=== PATIENT | female | born 1950 ===

== ENCOUNTER 2017-10-09 12:20 | Inpatient (IN) | payer MEDICARE ==
[2017-10-09] MEDS ORDERED: oxyCODONE/Acetamin 5/325 MG* TAB PO PRN (13:47)
[2017-10-09] MEDS ORDERED: Al Hydrox/Mg Hydrox/Simet LIQ* 30 ML UDC PO PRN (13:47)
[2017-10-09] MEDS ORDERED: Acetaminophen TAB* 325 MG PO PRN (13:47)
[2017-10-09] MEDS ORDERED: Temazepam CAP* 15 MG PO PRN (13:47)
[2017-10-09] MEDS ORDERED: Dextrose 50% Syringe 50 ML* 25 GM/50 ML SYRINGE IV PUSH PRN (13:55)
[2017-10-09] MEDS ORDERED: Diltiazem DRIP* 100 MG/100 ML ADDV.BAG IVPB SCH ×2 (14:00→16:19)
[2017-10-09] MEDS ORDERED: Iodixanol* (CONTRAST) 320 MG/ML 100 ML SDV IV ONE (15:12)
--- NOTE | 2017-10-09 16:31 | RAD ---
Indication: Evaluate for pulmonary embolus, right paratracheal mass. Contrast: Administered 80.1 ml of VISIPAQUE 320 mg/ml CTA of the chest was performed after IV contrast administration. Coronal and sagittal reconstructed images were obtained. The pulmonary arterial tree is well opacified. No evidence of filling defects are noted to suggest pulmonary embolus. Aorta demonstrates no evidence of aneurysmal dilatation or aortic dissection. Prominence on the left paratracheal area seen on x-ray likely is related to overlying vessels. There is cardiomegaly noted without evidence of pericardial effusion. Large bilateral pleural effusions are noted. Bibasilar atelectasis is noted. No pulmonary nodules are identified. The visualized abdominal organs are unremarkable. IMPRESSION: No definite evidence of pulmonary embolus. Moderate-sized bilateral pleural effusions are noted. No evidence of aortic dissection is noted. Paratracheal prominence on the left likely due to overlying vessels.
[2017-10-09] MEDS ORDERED: Furosemide IV* 10 MG/ML 2 ML VIAL (20 MG) IV ONE (17:24)
[2017-10-09] MEDS: Insulin LISPRO* 1 UNITS UNIT SUBCUT SCH ×2 (18:37→21:04)
--- NOTE | 2017-10-09 19:02 | HP ---
CC: Dr. Magallanes; Dr. Johnston * HISTORY AND PHYSICAL: DATE OF ADMISSION: 10/09/17 PRIMARY CARE PROVIDER: Dr. Johnston. CAPACITOR TESTER: Dr. Magallanes. CHIEF COMPLAINT: The patient was had been complaining of shortness of breath and dyspnea on exertion for the past 2 to 3 weeks. HISTORY OF PRESENT ILLNESS: Ashley Ayers is a 67-year-old female, originally from [place], has had problems with paroxysmal atrial fibrillation for the past 10 years. The patient stated that she was originally diagnosed with atrial fibrillation during a colonoscopy when she was living in [place] 10 years ago. At some point, her primary care provider noted that she may need to be placed on anticoagulation, but she never was. When she moved to [place], once she was under the care of Dr. Johnston, she was asked to be seen by Dr. Magallanes and that occurred in April of 2017. Dr. Magallanes saw the patient in consultation and was noted that the patient in paroxysmal atrial fibrillation on Holter monitor and she is asymptomatic when it happens. She was placed on Toprol-XL and Xarelto. She had been doing fine until approximately Thanksgiving time, which was 3 weeks ago. She did have dyspnea on exertion, problems with paroxysmal nocturnal dyspnea. She denied any problems with weight gain. She called Dr. Magallanes's office and she was prescribed "a diuretic." She had been taking the diuretics for approximately 3 days and she stated that she is feeling mildly better. She went to have an outpatient echocardiogram done and the preliminary verbal report was noted for the patient to have a heart rate of 170 and EF of approximately 20. She was sent from the echo study to the [facility] for evaluation. There she was noted to have mildly indeterminate troponin at 0.027 and heart rate in the 170s. She was placed on Cardizem drip and transferred to our facility for further treatment. PAST MEDICAL HISTORY: 1. History of atrial fibrillation as mentioned above. 2. History of diabetes. 3. Hypertension. 4. Dyslipidemia. 5. The patient's EF was noted to be 60% in March of 2017. CURRENT MEDICATIONS: Include: 1. Xarelto 20 mg daily. 2. Co-enzyme Q10 one tablet daily. 3. Victoza 1.8 mg subcutaneously daily. 4. Toprol-XL 25 mg daily. 5. The patient also was placed on diuretic and I suspect it was Lasix at an unknown dose for about [address] Magallanes. ALLERGIES: Include TRULICITY that causes GI upset and dizziness. FAMILY HISTORY: Positive for father, who after he fell out of window. Mother with history of breast cancer. SOCIAL HISTORY: The patient denies any tobacco, drug, or alcohol use. She lives with her , who will be her surrogate. She is originally from [facility] in [place]. REVIEW OF SYSTEMS: Please see history of present illness. In addition to the above mentioned, the patient denies any chest pain. She denies leg edema. She stated that she actually likely lost weight, but not gained weight, but she was quite unspecific about the numbers. All the remaining 14 systems were reviewed with the patient and were otherwise negative. PHYSICAL EXAMINATION GENERAL: The patient is a 67-year-old female, who is in no acute distress. Alert, awake, and oriented x3. VITAL SIGNS: Blood pressure of 111/80, heart rate of 111. The patient is currently on 7.5 mg of Cardizem drip. Respiratory rate 14, oxygen saturation 95 % on 3 L of oxygen nasal cannula, temperature 98.7. HEENT: Head: Atraumatic, normocephalic. Eyes: Pupils are equal, reactive to light and accommodation. Oropharynx is clear. Mucosa is moist. NECK: Supple. No JVD. No bruits bilaterally. RESPIRATORY: Faint crackles at bilateral bases, otherwise clear. CARDIOVASCULAR: Irregularly irregular rhythm. No murmurs. ABDOMEN: Soft and nontender. Bowel sounds are present in all 4 quadrants. EXTREMITIES: There is no edema. Pulses are +2 bilaterally. No clubbing or cyanosis. NEURO: Speech clear. Cranial nerves II through XII are grossly intact. Motor strength is 5/5 bilaterally. PSYCHIATRIC: The patient is oriented x3, very pleasant, cooperative with evaluation with no evidence of anxiety or depression. DIAGNOSTIC STUDIES/LAB DATA: Obtained at [facility] today, included, white blood cell count of 8.2, hemoglobin of 15.1, hematocrit of 43, MCV of 86, platelets of 224. INR was noted to be 1.18, glucose of 240, BUN 25, creatinine 1.1, potassium of 3.8, chloride 104, carbon dioxide 27, calcium of 8.8, magnesium of 1.9, total protein of 6.5. AST of 175, ALT of 331, alkaline phosphatase of 156. CPK of 52. Troponin of 0.027. The patient's EKG shows atrial fibrillation with a heart rate of 167 beats per minute at admission. The patient also had negative T waves in leads V3 to V6. The patient's chest x-ray obtained at [facility] was read by the radiologist: "There are low lung volumes. The patient is in apical lordotic projection. There is [id number] density obscuring the hemidiaphragms and blunting of costophrenic angles, right greater than left. There is no significant pulmonary vascular congestion. There is also a small density in the left paratracheal region measuring up to 2 cm transversely. The cardiomediastinal silhouette is increased in size. There are small bilateral pleural effusions with adjacent atelectasis. The left paratracheal soft tissue prominence may be related to lymphadenopathy or pulmonary lesions. Correlation with CT of the chest can be obtained." ASSESSMENT AND PLAN: A 67-year-old female with history paroxysmal atrial fibrillation, who now presents with uncontrolled atrial fibrillation, currently on Cardizem drip, as a transfer from [facility]. The patient also was noted to have cardiomyopathy with ejection fraction of approximately 20%. At this point, the patient is admitted to the intensive care unit on Cardizem drip. Cardiology service will follow with the patient. 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 It is possible that at some point, Cardiology would recommend for the patient to be cardioverted. It is also possible that at some point, the patient will require cardiac catheterization due to her recent drop in her ejection fraction. Please note that in March of 2017, her ejection fraction was 60%. I will also obtain the patient's TSH level. Her electrolytes appear to be not markedly abnormal. I suspect her elevation of liver function test is due to vascular congestion and due to congestive heart failure and we will repeat liver function test tomorrow. I will also obtain TSH in the morning. In regards to the patient's diabetes, the patient's Victoza is going to be held. She is going to be placed on insulin sliding scale and diabetic diet. For the paratracheal mass, the patient is going to have a CT angiogram of the chest obtained. In regards to the patient's anticoagulation, the patient is going to be continued on Xarelto at this point. For DVT prophylaxis, the patient is going to be continued on Xarelto as mentioned above. The patient's code status is full and her surrogate is her . TIME SPENT: Approximately 75 minutes was spent on the patient's admission. [id number]/[facility]PS #: [id number] MTDD
[2017-10-09] MEDS: Docusate CAP* 100 MG PO SCH (21:04)
[2017-10-10 06:26] LABS: Hematocrit 42 % (35-47); Hemoglobin 14.1 g/dl (12.0-16.0); Mean Corpuscular HGB Conc 34 g/dl (31-36); Mean Corpuscular Hemoglobin 30 pg (27-31); Mean Corpuscular Volume 89 fL (80-97); Mean Platelet Volume 8 um3 (7.4-10.4); Red Blood Count 4.71 10^6/ul (4.0-5.4); Red Cell Distribution Width 14 % (10.5-15); White Blood Count 6.7 10^3/ul (3.5-10.8)
[2017-10-10 06:39] LABS: Albumin 3.7 g/dL (3.2-5.2); BUN/Creatinine Ratio 22.8 (8-20); Calcium 8.9 mg/dL (8.6-10.3); EGFR African American 93.1 (>60); EGFR Non-African American 72.4 (>60); Globulin 2.3 g/dL (2-4); Potassium 3.2 mmol/L (3.5-5.0)
[2017-10-10 07:19] LABS: TSH (Thyroid Stimulating Horm) 1.39 mcIU/mL (0.34-5.60)
[2017-10-10] MEDS: Insulin LISPRO* 1 UNITS UNIT SUBCUT SCH ×4 (08:07→21:23)
[2017-10-10] MEDS: Docusate CAP* 100 MG PO SCH ×2 (09:17→21:30)
[2017-10-10] MEDS: Rivaroxaban TAB(*) 20 MG TAB PO SCH (09:33)
[2017-10-10] MEDS ORDERED: Amiodarone 150 MG IVPREMIX* 150 MG/100 ML BAG IV ONE (10:30)
[2017-10-10] MEDS ORDERED: Potassium Chlor TAB* 20 MEQ TAB.ER PO ONE (10:45)
[2017-10-10] MEDS ORDERED: Amiodarone 360 MG IVPREMIX* 360 MG/200 ML BAG IV ONE (11:00)
--- NOTE | 2017-10-10 11:45 | CONS ---
CC: Dr. Scotty Johnston at [facility] CARDIOLOGY CONSULTATION: DATE OF CONSULT: 10/10/17 INDICATION FOR CONSULTATION: Congestive heart failure, atrial fibrillation. HISTORY OF PRESENT ILLNESS: The patient is a 67-year-old female with a history of paroxysmal atrial fibrillation, diabetes, who has been having increasing shortness of breath for 2 weeks. The patient states that she noticed around Thanksgiving that she was getting more short of breath with exertion. She was short of breath with exertion up a flight of stairs. She went to see her primary care physi gavin who thought it was bronchitis and started her on antibiotics. The patient continued to worsen a nd got to the point where she was having significant orthopnea and palpitations. She called my offic e for evaluation. At that time, I had recommended an echocardiogram. I had given her a prescription for p.o. Lasix. The patient states that she took one dose of Lasix and immediately felt significant ly better within a couple of hours. On Thursday morning, patient went to [facility] for an echo cardiogram. Her echocardiogram showed severely reduced LV systolic function. Ejection fraction of 2 0%. Moderate to severe mitral regurgitation and severe pulmonary hypertension. At that time, she wa s in atrial fibrillation with a heart rate of 150. She was admitted to [facility] for her congestive heart failure. Overnight, the patient was placed on a Cardizem drip with good heart rate control. She was also given IV Lasix. Today, the patient feels markedly better. She states she is able to sleep comfortably overnight. The patient continues to be in atrial fibrillation with rapid heartbeat. The patient denies any true anginal type symptoms. She denies any feelings of significan t palpations. The patient states that at one point, she was walking out in the garage and she felt e xtremely dizzy and sort of collapsed onto the ground. OUTPATIENT MEDICATIONS: 1. Aspirin 81 mg a day. 2. Victoza as directed. 3. CoQ10 enzyme. 4. Metoprolol 25 mg b.i.d. 5. Xarelto 20 mg a day. ALLERGIES: No known drug allergies. FAMILY HISTORY: Father of a home accident. Mother of breast cancer. SOCIAL HISTORY: She lives alone. Her daughter is very involved in her care. She denies tobacco or alcohol use. She does not get any regular exercise. PHYSICAL EXAM: Vital Signs: Height is 4 feet 11 inches, weight is 118 pounds. Heart rate is 114, bl ood pressure 120/70, respiratory rate 17, oxygen saturation 94% on 2 L, temperature 98.5. HEENT: Sc lerae anicteric. Oropharynx is pink without erythema. Neck: Carotids are 2+ without bruits. JVD i s slightly elevated at a 30-degree angle. Thyroid is normal. Cardiac: Tachycardic. S1 and S2 with 1/6 systolic ejection murmur heard best at the apex. PMI is normal. Lungs: Have minimal rales at the bases. There was no dullness to percussion. Abdomen: Soft, nontender, and nondistended with no rmoactive bowel sounds. Extremities: Show no edema. She has 2+ pulses throughout. Neurologic: Th e patient is awake, alert, and oriented. She moves all 4 extremities equally. DIAGNOSTIC STUDIES/LAB DATA: CBC within normal limits. Chemistry: Potassium is a little low at 3.2 , BUN and creatinine are normal. Troponin level 0.01. TSH 1.39. AST and ALT are mildly elevated at 127 and 225. EKG shows atrial fibrillation with rapid ventricular response. The patient did have an echocardiogram over at [facility] yesterday morning as described above . 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 At some point, the patient probably went into continued atrial fibrillation with rapid ventricular response and developed tachycardia-induced cardiomyopathy. RECOMMENDATIONS: For now my recommendation is to start amiodarone IV for an IV loading of amiodarone . The patient will stay on amiodarone over the weekend. If the patient does not convert to normal s inus rhythm then patient will undergo cardioversion on Thursday morning. The patient will likely need a transesophageal echocardiogram before that. Patient states that she has been taking her medication s erratically for the last two weeks. So, I am not sure if she has been continuously taking her Xare lto. I do not think another cardiac workup is necessary at this time. Further recommendations pending her hospital course. This case was discussed with Dr. Mojica. [id number]/[facility] #: [id number]
--- NOTE | 2017-10-10 14:46 | PN ---
Subjective Date of Service: 10/10/17 Interval History: Pt continues to be in A.fib, HR 100-130 on amiodarone and Cardizem gtt. no new complaints. Objective Active Medications: Acetaminophen (Tylenol Tab*) 650 mg PO Q4H PRN PRN Reason: FEVER/PAIN Al Hydrox/Mg Hydrox/Simethicone (Maalox Plus*) 30 ml PO Q6H PRN PRN Reason: INDIGESTION Dextrose (D50w Syringe 50 Ml*) 12.5 gm IV PUSH .FOR FS < 60 - SS PRN PRN Reason: FS < 60 Docusate Sodium (Colace Cap*) 100 mg PO BID [facility] Last Admin: 10/10/17 09:17 Dose: Not Given Diltiazem HCl (Cardizem Iv Advan*) 100 mg in 100 mls @ 0 mls/hr IVPB .PER PARAMETERS [facility] PRN Reason: As Directed Last Admin: 10/10/17 06:15 Dose: 3 mls/hr Amiodarone HCl (Nexterone 360 Mg/200 Ml Ivpremix*) 360 mg in 200 mls @ 33.333 mls/hr IV ONCE ONE PRN Reason: 1 MG/MIN Stop: 10/10/17 16:59 Last Admin: 10/10/17 11:16 Dose: 33.333 mls/hr Insulin Human Lispro (Humalog*) 0 units SUBCUT ACHS [facility] PRN Reason: Protocol Last Admin: 10/10/17 11:59 Dose: 10 unit Oxycodone/Acetaminophen (Percocet 5/325 Tab*) 1 tab PO Q4H PRN PRN Reason: Pain Rivaroxaban (Xarelto (*)) 20 mg PO DAILY [facility] Last Admin: 10/10/17 09:33 Dose: 20 mg Temazepam (Restoril Cap*) 15 mg PO BEDTIME PRN PRN Reason: INSOMNIA Vital Signs - 8 hr 10/10/17 10/10/17 10/10/17 06:45 07:00 07:01 Temperature 98.5 F Pulse Rate 102 91 86 Respiratory 20 20 20 Rate Blood Pressure 114/68 126/70 (mmHg) O2 Sat by Pulse 95 94 Oximetry 10/10/17 10/10/17 10/10/17 07:15 07:30 07:46 Temperature Pulse Rate 101 101 94 Respiratory 21 24 19 Rate Blood Pressure 117/70 117/74 121/71 (mmHg) O2 Sat by Pulse 95 94 95 Oximetry 10/10/17 10/10/17 10/10/17 08:00 08:15 08:30 Temperature Pulse Rate 110 103 101 Respiratory 22 18 19 Rate Blood Pressure 130/77 121/80 (mmHg) O2 Sat by Pulse 95 96 96 Oximetry 10/10/17 10/10/17 10/10/17 08:45 09:00 09:31 Temperature Pulse Rate 102 104 112 Respiratory 21 20 19 Rate Blood Pressure 107/78 125/76 124/81 (mmHg) O2 Sat by Pulse 95 95 95 Oximetry 10/10/17 10/10/17 10/10/17 09:46 10:00 10:01 Temperature Pulse Rate 110 129 130 Respiratory 17 22 18 Rate Blood Pressure 120/70 136/109 (mmHg) O2 Sat by Pulse 94 94 94 Oximetry 10/10/17 10/10/17 10/10/17 10:15 10:31 10:45 Temperature Pulse Rate 115 120 115 Respiratory 20 19 20 Rate Blood Pressure 124/90 103/72 103/66 (mmHg) O2 Sat by Pulse 95 94 94 Oximetry 10/10/17 10/10/17 10/10/17 10:54 10:56 10:57 Temperature Pulse Rate 126 110 134 Respiratory 22 20 25 Rate Blood Pressure 83/66 101/73 113/80 (mmHg) O2 Sat by Pulse 92 95 95 Oximetry 10/10/17 10/10/17 10/10/17 11:00 11:05 11:10 Temperature Pulse Rate 136 119 121 Respiratory 22 25 24 Rate Blood Pressure 127/85 121/89 (mmHg) O2 Sat by Pulse 95 94 94 Oximetry 10/10/17 10/10/17 10/10/17 11:15 11:20 11:25 Temperature Pulse Rate 119 121 132 Respiratory 25 29 26 Rate Blood Pressure 125/88 114/79 117/85 (mmHg) O2 Sat by Pulse 93 93 94 Oximetry 10/10/17 10/10/17 10/10/17 11:30 11:31 11:35 Temperature 99.5 F Pulse Rate 124 127 Respiratory 24 19 Rate Blood Pressure 110/78 116/75 (mmHg) O2 Sat by Pulse 94 94 Oximetry 10/10/17 10/10/17 10/10/17 11:40 11:45 11:50 Temperature Pulse Rate 120 120 130 Respiratory 24 28 24 Rate Blood Pressure 106/68 111/88 117/84 (mmHg) O2 Sat by Pulse 94 95 94 Oximetry 10/10/17 10/10/17 10/10/17 11:55 12:00 12:05 Temperature Pulse Rate 113 125 120 Respiratory 25 20 23 Rate Blood Pressure 112/83 116/87 110/90 (mmHg) O2 Sat by Pulse 94 94 94 Oximetry 10/10/17 10/10/17 10/10/17 12:10 12:16 12:20 Temperature Pulse Rate 116 116 124 Respiratory 25 22 21 Rate Blood Pressure 114/85 107/82 122/88 (mmHg) O2 Sat by Pulse 95 95 95 Oximetry 10/10/17 10/10/17 10/10/17 12:40 12:46 12:51 Temperature Pulse Rate 121 106 108 Respiratory 25 24 23 Rate Blood Pressure 133/88 109/76 109/87 (mmHg) O2 Sat by Pulse 94 93 95 Oximetry 10/10/17 10/10/17 10/10/17 12:55 13:00 13:06 Temperature Pulse Rate 104 124 124 Respiratory 24 18 23 Rate Blood Pressure 113/92 104/85 101/84 (mmHg) O2 Sat by Pulse 94 94 95 Oximetry 10/10/17 10/10/17 10/10/17 13:10 13:16 13:20 Temperature Pulse Rate 119 114 114 Respiratory 24 19 24 Rate Blood Pressure 110/79 106/82 109/79 (mmHg) O2 Sat by Pulse 95 94 95 Oximetry 10/10/17 10/10/17 10/10/17 13:26 13:30 13:35 Temperature Pulse Rate 115 114 122 Respiratory 21 24 22 Rate Blood Pressure 99/72 104/81 106/68 (mmHg) O2 Sat by Pulse 96 95 95 Oximetry 10/10/17 10/10/17 10/10/17 13:40 13:45 13:52 Temperature Pulse Rate 110 118 101 Respiratory 22 24 26 Rate Blood Pressure 103/79 90/67 104/76 (mmHg) O2 Sat by Pulse 95 95 95 Oximetry 10/10/17 10/10/17 13:56 14:00 Temperature Pulse Rate 112 115 Respiratory 23 23 Rate Blood Pressure 90/66 (mmHg) O2 Sat by Pulse 95 97 Oximetry Oxygen Devices in Use Now: None Appearance: 67 yo f in nAD, aAOx3 Eyes: No Scleral Icterus, PERRLA Ears/Nose/Mouth/Throat: NL Teeth, Lips, Gums, Mucous Membranes Moist Neck: NL Appearance and Movements; NL JVP, Trachea Midline Respiratory: Symmetrical Chest Expansion and Respiratory Effort, - - decreased breath sounds at b/l bases Cardiovascular: - - irregular, 2/6 CHARITY at apex Abdominal: NL Sounds; No Tenderness; No Distention, No Hepatosplenomegaly Lymphatic: No Cervical Adenopathy Extremities: No Edema, No Clubbing, Cyanosis Skin: No Rash or Ulcers, No Nodules or Sclerosis Neurological: Alert and Oriented x 3, NL Muscle Strength and Tone Result Diagrams: 10/10/17 06:15 10/10/17 06:15 Microbiology and Other Data: Microbiology 10/09/17 14:00 Nasal Screen MRSA (PCR)([facility]) - Final Nasal Mrsa Negative Assess/Plan/Problems-Billing Assessment: 67 yo F with h/o HTN, PAF, DM2 now with persistent a. fib - Patient Problems (1) Atrial fibrillation Comment: Appreciate Dr. Magallanes's consult cont Cardizem gtt and wean down to off when on Amiodarone gtt Planned for cardioversion on Thursday. cont Xarelto (2) Systolic CHF Comment: EF done to 20%, severe pulm HTN and mod to severe MR on echo done as outpatient on 10/09/17 Tx with Lasix on 10/19/17 B/l pleural effusions on CT due to CHF. Today appears euvolemic. Cont daily weights. (3) DM type 2 (diabetes mellitus, type 2) Comment: cont ISS and start Lantus, Victoza on hold (4) DVT prophylaxis Comment: cont Xarelto (5) LFT elevation Comment: possibly due to passive liver congestion due to CHF, will monitor closely when on Amiodarone Check liver US, check hepatitis panel Status and Disposition: inpatient
[2017-10-10] MEDS ORDERED: Insulin GLARGINE(*) 1 UNITS UNIT SUBCUT SCH (15:00)
[2017-10-10] MEDS ORDERED: NS 0.9% 250 ML* 250 ML IV ONE (17:00)
[2017-10-10] MEDS ORDERED: PROCHLORPERAZINE INJ 5 MG/ML 2 ML VIAL IV PRN (17:25)
--- NOTE | 2017-10-10 17:28 | PN ---
Progress Note - Progress Note Date of Service: 10/10/17 Note: In the afternoon pt started c/o diarrhea and abd cramping as well as nausea. on exam she has no abd tenderness, but is very nauseated and retching. SBP at 87 and Cardizem and Amiodarone turned off. IVF bolus provided and compazine prn. Suspect gastroenteritis. Will cont IVF boluses till SBP>100 PT denies CP
[2017-10-10] MEDS ORDERED: Amiodarone 360 MG IVPREMIX* 360 MG/200 ML BAG IV SCH (17:30)
[2017-10-10] MEDS ORDERED: PROCHLORPERAZINE INJ 5 MG/ML 2 ML VIAL ONE (17:31)
[2017-10-10] MEDS ORDERED: NS 0.9% 1000 ML* 1,000 ML IV ONE (18:12)
[2017-10-10] MEDS ORDERED: NS 0.9% 500 ML* 500 ML IV ONE (18:12)
[2017-10-10 18:22] LABS: Hematocrit 40 % (35-47); Hemoglobin 13.2 g/dl (12.0-16.0); Mean Corpuscular HGB Conc 33 g/dl (31-36); Mean Corpuscular Hemoglobin 30 pg (27-31); Mean Corpuscular Volume 90 fL (80-97); Mean Platelet Volume 8 um3 (7.4-10.4); Red Blood Count 4.46 10^6/ul (4.0-5.4); Red Cell Distribution Width 14 % (10.5-15); White Blood Count 10.5 10^3/ul (3.5-10.8)
[2017-10-10 18:36] LABS: Calcium 8.2 mg/dL (8.6-10.3); EGFR African American 54.8 (>60); EGFR Non-African American 42.6 (>60); Potassium 4.8 mmol/L (3.5-5.0)
[2017-10-10 18:38] LABS: Troponin I 0.01 ng/mL (<0.04)
--- NOTE | 2017-10-10 18:39 | PN ---
Hospitalist Progress Note Date of Service: 10/10/17 Called to bedside to eval patient for low bp 67/54 patient had just gotten to toilet and was having nausea and to have bm. Pt has been having cramping and diarrhea today. Dr fraser originally notified and I was asked to eval 1 liter ns had been infused via 250cc boluses. Pt assessed. lungs cta. Pt noted to have increased work of breathing resp rate 30. Bp note 80 systolic. afib at 80-90 on monitor abd soft non tender. EKG ordered no changes from previous ekg. Checking cbc bmp lactic acid cxr ordered. Pt with known cardiomypoathy suspect from tachy induced ef < 20 percent with mod to severe MR. Called Dr baugh and Dr griffiths. Suspect that patient vago-vagaled on toilet. Suspect that due to cariomypoathy patient can not recover. Will start dopamine drip. to increase cardiac output. Discussed this Dr fraser. will check trops lactic bmp, cbc,
[2017-10-10] MEDS ORDERED: D5W IV SCH (19:00)
[2017-10-10] MEDS ORDERED: DOPAMINE IV SCH (19:00)
[2017-10-10 19:05] LABS: Albumin 3.4 g/dL (3.2-5.2); Direct Bilirubin 0.2 mg/dL (0.03-0.18); Globulin 1.9 g/dL (2-4); Indirect Bilirubin 0.4 mg/dL (0.3-1.0); Total Bilirubin 0.6 mg/dL (0.2-1.0); Total Protein 5.3 g/dL (6.4-8.9)
--- NOTE | 2017-10-10 19:15 | RAD ---
Indication: Shortness of breath. Atrial fibrillation. Respiratory disease. Comparison: October 09, [address] Technique: Semiupright AP chest 1838 hours Report: Cardiomegaly. Prominent ill-defined central pulmonary vasculature with cephalization. Mild prominence of the interstitial markings. Moderate dependent pleural effusions with proportional basilar atelectasis. Negative for pneumothorax. IMPRESSION: Pulmonary vascular congestion and interstitial edema with associated moderate dependent pleural effusions without significant interval change.
[2017-10-10] MEDS ORDERED: Piperacillin/Tazobac ADVAN(*) 3.375 GM in NS 0.9% 100 ML* 100 ML IVPB ONE (19:30)
[2017-10-10] MEDS ORDERED: cefTRIAXone(*) 1 GM in D5W 50 ML BAG* 50 ML IVPB SCH (19:30)
[2017-10-10] MEDS ORDERED: cefTRIAXone(*) 1 GM in NS 0.9% 50 ML* 50 ML IVPB SCH (19:30)
--- NOTE | 2017-10-10 19:40 | PN ---
Progress Note - Progress Note Date of Service: 10/10/17 Note: Pt is placed on dopamine. Dr. Magallanes by the pt's bedside talking with pt's family about possible cardioversion. Pt started having rigors. Blood cx obtained and Vanc/Zosyn started. Pt was placed on Vapotherm to decrease WOB, but also for worsening hypoxemia. On abd eval : soft, NT, BS+ opt c/o occasional abd cramping. She is AAOx3 Also Temp done to 35.5 C Suspect sepsis form GI source? D/w Dr. Magallanes, pt was singed out to Dr. Hampton.
[2017-10-10] MEDS ORDERED: Midazolam* 1 MG/ML 2 ML VIAL (2 MG) ONE (19:56)
[2017-10-10] MEDS ORDERED: Norepinephrine 16MCG/ML IVPRE* 4,000 MCG/250 ML BAG IV SCH (20:00)
[2017-10-10] MEDS ORDERED: Zosyn per Pharmacy* NOTE FOLLOW UP SCH (20:00)
[2017-10-10] MEDS ORDERED: Vancomycin(*) 1,000 MG in NS 0.9% 250 ML* 250 ML IVPB ONE (20:00)
[2017-10-10] MEDS ORDERED: metroNIDAZOLE IV 500 MG/100ML* 500 MG/100 ML BAG IVPB SCH (20:00)
[2017-10-10 20:26] LABS: EPAP 6; FIO2 100; IPAP 12
[2017-10-10 20:27] LABS: PCO2 Arterial 35 mmHg (35-45)
[2017-10-10 20:41] LABS: Urine Bacteria Absent (Absent); Urine Bilirubin Negative (Negative); Urine Glucose 1+(50 mg/dL) (Negative); Urine Nitrite Negative (Negative)
[2017-10-10] MEDS: ZOSYN 3.375 GM Q8H per EXTENDED INFUSION IVPB SCH ×2 (23:24)
--- NOTE | 2017-10-11 01:59 | CARD ---
CARDIOVERSION PROCEDURE NOTE AND CRITICAL CARE NOTE: DATE OF STUDY: 10/10/17 PROCEDURE: Cardioversion. INDICATION: Atrial fibrillation, hypotension. HISTORY: The patient is a 67-year-old female with a history of paroxysmal atrial fibrillation who wa s admitted to the hospital with atrial fibrillation with rapid ventricular response. Her echocardiog kendra showed severe LV dysfunction with [id number] mitral regurgitation. The patient was place d on IV amiodarone and IV diltiazem with a plan of doing cardioversion within 1 to 2 days. I have se en the patient this morning and her vitals were stable. The patient was awake, alert and talking in full sentences. Her lung exam had minimal rales. Around 6 o'clock tonight, the patient had an episo de where she went to the bathroom and had some diarrhea as well as severe nausea and then became prof oundly hypotensive and somewhat bradycardic. The patient was placed back in bed. Her oxygen was sig nificantly increased. Her amiodarone and diltiazem were stopped. The patient's lab showed that her lactic acid levels were significantly elevated and she was started on dobutamine. On my arrival, the patient's heart rate was 130, her blood pressure was 90/50. She was meeting about 30 times a minute . She was communicative, but not nearly as she was earlier in the day. The patient's lung exam was still rales at the bases. She had no edema. The patient was having active rigors. The decision at that time was to place a triple lumen catheter and consider cardioversion. Cardioversion was recommended because of her tachycardia and continue tenuous blood pressure. The rigoberto lee was given 2 mg of Versed and was cardioverted with 200 joules of synchronized biphasic energy. This was an emergency procedure and informed consent was not obtained prior to the procedure. The p atient converted to normal sinus rhythm. The patient tolerated the procedure well. After the proced ure, the patient was still somewhat somnolent and was placed on a BiPAP. Blood cultures were obtained . The patient was given antibiotics per the hospitalist. I spent approximately an hour of critical care time with the patient as well as the cardioversion. [id number]/[facility] #: [id number]
--- NOTE | 2017-10-11 02:08 | CARD ---
PROCEDURE NOTE: DATE OF VISIT: 10/10/17 PROCEDURE: Central IV access. INDICATION: Hypotension, tachycardia. The patient is a 67-year-old female who came into the intensive care unit because of severe cardiomyo victoriano and rapid atrial fibrillation. The patient had an episode of diarrhea and nausea and became ma rkedly hypotensive and bradycardic, requiring pressor initiation. The patient had minimal IV access, central IV access was recommended. The patient is on chronic anticoagulation, thus femoral access was done. DESCRIPTION OF PROCEDURE: The right femoral area was cleaned and draped in the usual fashion. 1% li docaine was used for local anesthesia. The right femoral vein was entered by a modified Seldinger te chnique and a guidewire was placed. Over the guidewire, a triple lumen catheter was advanced and sut ured into position. All ports flushed evenly. The patient tolerated the procedure well. There were no complications. [id number]/[facility] #: [id number]
[2017-10-11 06:04] LABS: Magnesium 1.8 mg/dL (1.9-2.7)
[2017-10-11 06:08] LABS: Troponin I 0.03 ng/mL (<0.04)
[2017-10-11] MEDS: DOPAMINE IV SCH ×2 (06:58→18:33)
[2017-10-11] MEDS: NS 0.9% IV SCH ×2 (06:58→18:33)
[2017-10-11] MEDS: Insulin LISPRO* 1 UNITS UNIT SUBCUT SCH ×4 (08:27→20:31)
[2017-10-11] MEDS: ZOSYN 3.375 GM Q8H per EXTENDED INFUSION IVPB SCH ×6 (08:27→23:13)
[2017-10-11] MEDS: Docusate CAP* 100 MG PO SCH ×2 (08:28→20:23)
--- NOTE | 2017-10-11 08:30 | PN ---
Subjective Date of Service: 10/11/17 Interval History: Pt was placed on BIPAT overnight and cardioverted to NSR by Dr. Magallanes. Remained on Dopamine gtt at 5mcg with SBP's in 115's range. Denies abd pain, diarrhea resolved Objective Active Medications: Acetaminophen (Tylenol Tab*) 650 mg PO Q4H PRN PRN Reason: FEVER/PAIN Al Hydrox/Mg Hydrox/Simethicone (Maalox Plus*) 30 ml PO Q6H PRN PRN Reason: INDIGESTION Dextrose (D50w Syringe 50 Ml*) 12.5 gm IV PUSH .FOR FS < 60 - SS PRN PRN Reason: FS < 60 Docusate Sodium (Colace Cap*) 100 mg PO BID [facility] Last Admin: 10/10/17 21:30 Dose: Not Given Amiodarone HCl (Nexterone 360 Mg/200 Ml Ivpremix*) 360 mg in 200 mls @ 16.667 mls/hr IV .SEE PROTOCOL [facility]; 0.5 MG/MIN PRN Reason: Protocol Stop: 10/11/17 11:29 Norepinephrine Bitartrate 4 mg (/ Sodium Chloride) 250 mls @ 7.5 mls/hr IV Q24H [facility] PRN Reason: 2 MCG/MIN Last Admin: 10/11/17 07:45 Dose: Not Given Piperacillin Sod/Tazobactam (Sod 3.375 gm/ Sodium Chloride) 100 mls @ 25 mls/ hr IVPB Q8H [facility] Last Admin: 10/10/17 23:24 Dose: 25 mls/hr Vancomycin HCl 750 mg/ Sodium (Chloride) 250 mls @ 166.667 mls/hr IVPB Q12H [facility] Dopamine HCl 200 mg/ Sodium (Chloride) 250 mls @ 20.1 mls/hr IV Q12H [facility] PRN Reason: 5 MCG/KG/MIN Last Admin: 10/11/17 06:58 Dose: 20.3 mls/hr Insulin Glargine (Lantus(*)) 5 units SUBCUT Q24H [facility] Last Admin: 10/10/17 15:31 Dose: 5 units Insulin Human Lispro (Humalog*) 0 units SUBCUT ACHS [facility] PRN Reason: Protocol Last Admin: 10/11/17 08:27 Dose: Not Given Oxycodone/Acetaminophen (Percocet 5/325 Tab*) 1 tab PO Q4H PRN PRN Reason: Pain Pharmacy Consult (Zosyn Per Pharmacy*) 1 note FOLLOW UP .ZOSYN PER PHARMACY [facility] Pharmacy Profile Note (Vancomycin Trough Check) 1 note FOLLOW UP 829 ONE Stop: 10/12/17 08:31 Prochlorperazine Edisylate (Compazine Inj*) 5 mg IV Q6H PRN PRN Reason: NAUSEA/VOMITING Last Admin: 10/10/17 17:33 Dose: 1 ml Rivaroxaban (Xarelto (*)) 20 mg PO DAILY [facility] Last Admin: 10/10/17 09:33 Dose: 20 mg Temazepam (Restoril Cap*) 15 mg PO BEDTIME PRN PRN Reason: INSOMNIA Vital Signs - 8 hr 10/11/17 10/11/17 10/11/17 00:30 00:45 01:00 Temperature 99.7 F 99.7 F 99.5 F Pulse Rate 74 75 71 Respiratory 19 20 17 Rate Blood Pressure 104/59 114/63 104/61 (mmHg) O2 Sat by Pulse 95 95 95 Oximetry 10/11/17 10/11/17 10/11/17 01:15 01:30 01:45 Temperature 99.5 F 99.5 F 99.5 F Pulse Rate 71 67 74 Respiratory 24 16 15 Rate Blood Pressure 102/57 103/59 107/66 (mmHg) O2 Sat by Pulse 96 96 97 Oximetry 10/11/17 10/11/17 10/11/17 02:00 02:15 02:30 Temperature 99.3 F 99.3 F 99.1 F Pulse Rate 75 71 70 Respiratory 16 18 20 Rate Blood Pressure 103/60 97/58 100/56 (mmHg) O2 Sat by Pulse 97 97 97 Oximetry 10/11/17 10/11/17 10/11/17 02:45 03:00 03:15 Temperature 99.1 F 99.0 F 98.8 F Pulse Rate 72 68 63 Respiratory 18 20 27 Rate Blood Pressure 101/53 99/66 103/52 (mmHg) O2 Sat by Pulse 97 97 97 Oximetry 10/11/17 10/11/17 10/11/17 03:30 03:42 03:45 Temperature 98.6 F 98.6 F Pulse Rate 69 70 67 Respiratory 15 17 22 Rate Blood Pressure 106/57 107/54 (mmHg) O2 Sat by Pulse 98 98 98 Oximetry 10/11/17 10/11/17 10/11/17 04:00 04:15 04:30 Temperature 98.4 F 98.4 F 98.4 F Pulse Rate 65 67 57 Respiratory 21 16 15 Rate Blood Pressure 105/58 107/62 116/57 (mmHg) O2 Sat by Pulse 97 97 99 Oximetry 10/11/17 10/11/17 10/11/17 04:45 05:00 05:15 Temperature 98.2 F 98.2 F 98.2 F Pulse Rate 56 61 58 Respiratory 19 17 18 Rate Blood Pressure 117/61 113/64 125/64 (mmHg) O2 Sat by Pulse 98 98 99 Oximetry 10/11/17 10/11/17 10/11/17 05:30 05:45 06:00 Temperature 98.4 F 98.4 F 98.4 F Pulse Rate 52 72 65 Respiratory 15 20 17 Rate Blood Pressure 111/62 120/65 129/67 (mmHg) O2 Sat by Pulse 99 98 96 Oximetry 10/11/17 10/11/17 10/11/17 06:01 06:15 06:30 Temperature 98.4 F 98.2 F 98.2 F Pulse Rate 66 63 61 Respiratory 19 36 26 Rate Blood Pressure 105/53 114/59 (mmHg) O2 Sat by Pulse 96 95 95 Oximetry 10/11/17 10/11/17 06:45 07:00 Temperature 98.2 F 98.2 F Pulse Rate 66 63 Respiratory 18 18 Rate Blood Pressure 115/62 97/56 (mmHg) O2 Sat by Pulse 95 95 Oximetry Oxygen Devices in Use Now: BiPAP - at 50 % Fi02 Appearance: 67 yo F in nAD, AAOx3, on BIPAP Eyes: No Scleral Icterus, PERRLA Ears/Nose/Mouth/Throat: NL Teeth, Lips, Gums, Mucous Membranes Moist Neck: NL Appearance and Movements; NL JVP, Trachea Midline Respiratory: Symmetrical Chest Expansion and Respiratory Effort, Clear to Auscultation Cardiovascular: NL Sounds; No Murmurs; No JVD, RRR Abdominal: NL Sounds; No Tenderness; No Distention, No Hepatosplenomegaly Lymphatic: No Cervical Adenopathy Extremities: No Clubbing, Cyanosis, - - mild b/l hand edema Skin: No Rash or Ulcers, No Nodules or Sclerosis, - - R femoral triple lumen in place, no hematoma Neurological: Alert and Oriented x 3, NL Muscle Strength and Tone Result Diagrams: 10/11/17 08:39 10/11/17 08:39 Microbiology and Other Data: Microbiology 10/09/17 14:00 Nasal Screen MRSA (PCR)([facility]) - Final Nasal Mrsa Negative Assess/Plan/Problems-Billing Assessment: 67 yo F with h/o HTN, PAF, DM2 now with persistent a. fib - Patient Problems (1) Hypotension Comment: on 10/10/17 at 5 PM pt developed hypotension with loose BM's and c/o nausea and abd cramping. That occured on Amiodarone gtt-started that AM and cardizem gtt that was being weaned to off. Cardizem and Amiodarone were stopped , pt continued to be hypotensive and nauseated. given IVF boluses with no response. Placed on dopamine gtt. Dr. Magallanes arrived and cardioverted to NSR, placed on BIPAP for cardioversion. This AM she is feeling better. Still on BIPAP and dopamine gtt. Labs pending Plan to wean off BIPAP and Dopamine started on Zosyn and Vanc for hypothermia and rigors during the above event for suspected sepsis (? abdominal source?). So far infectious w/up showed G+ cocci in one bottle and will cont antibiotics (2) Atrial fibrillation Comment: Appreciate Dr. Magallanes's consult S/p cardioversion on 10/10/17-see above (troponin transiently up to 0.2 secondary to cardioversion). now in NSR with PAC's cont Xarelto (3) Systolic CHF Comment: EF 20%, severe pulm HTN and mod to severe MR on echo done as outpatient on 10/09/17 Tx with Lasix on 10/19/17 B/l pleural effusions on CT due to CHF. Today will monitor , take off BIPAP (4) DM type 2 (diabetes mellitus, type 2) Comment: cont ISS , Victoza on hold due to aM hypoglycemia Lantus will be held (5) DVT prophylaxis Comment: cont Xarelto (6) LFT elevation Comment: possibly due to passive liver congestion due to CHF, will monitor closely when on Amiodarone Liver US -ordered, acute hepatitis panel negative Status and Disposition: inpatient
[2017-10-11 08:53] LABS: Hematocrit 38 % (35-47); Hemoglobin 12.9 g/dl (12.0-16.0); Mean Corpuscular HGB Conc 34 g/dl (31-36); Mean Corpuscular Hemoglobin 30 pg (27-31); Mean Corpuscular Volume 88 fL (80-97); Mean Platelet Volume 8 um3 (7.4-10.4); Red Blood Count 4.31 10^6/ul (4.0-5.4); Red Cell Distribution Width 14 % (10.5-15); White Blood Count 7.7 10^3/ul (3.5-10.8)
[2017-10-11] MEDS ORDERED: Magnesium Sulfate 1 GM IV* 1 GM/100 ML BAG IV ONE (09:00)
[2017-10-11] MEDS ORDERED: Famotidine IV * 20 MG in NS 0.9% 100 ML* 100 ML IVPB SCH (09:00)
[2017-10-11 09:10] LABS: BUN/Creatinine Ratio 22.9 (8-20); Calcium 8.6 mg/dL (8.6-10.3); EGFR African American 74.3 (>60); EGFR Non-African American 57.8 (>60)
[2017-10-11] MEDS: Vancomycin(*) 750 MG in NS 0.9% 250 ML* 250 ML IVPB SCH ×2 (09:50→20:25)
[2017-10-11] MEDS: Famotidine IV* 10 MG/ML 2 ML (20 mg) IV SLOW PU SCH ×2 (09:52→20:24)
[2017-10-11] MEDS: Rivaroxaban TAB(*) 20 MG TAB PO SCH (11:00)
--- NOTE | 2017-10-11 12:44 | CONSULT ---
Consult Consult: CRITICAL CARE MEDICINE DATE: 10/11/17 TIME: 1010 REFERRING PROVIDER: bria REASON/CHIEF COMPLAINT: son, cardiomyopathy HISTORY OF PRESENT ILLNESS: 67 F presenting 2 days ago as transfer from [facility] to [facility] and afib rvr. Known to Dr. Magallanes who was already presuming she had chf and pt initially admitted for rate control afib, concern for tachycardia induced cm and started on cardizem. bp soft and small amount of fluid boluses; then started on amio as well. soon after pt with decompensation and concern for cardiogenic shock, although she then developed rigors with concerns even for infection. tx empirically with abx while resuscitated with dopamine and hfo2 and then to bipap after having central access placed and then given her continued slow ability to thrive post acute shock she underwent cardioversion last pm with vast improvement in dynamics. hernandez bipap overnight and markedly better end organ perfusion. REVIEW OF SYSTEMS: As per HPI. PAST MEDICAL HISTORY: As per HPI. MEDICATIONS: Reviewed. ALLERGIES: Reviewed. SOCIAL HISTORY: Reviewed. FAMILY HISTORY: Noncontributory at present. PHYSICAL EXAM: Vital Signs: Reviewed. dopa at 5. 15lpm 50% Neurologic: awake, communicating, nad HEENT: poor dentition Cardiovascular: S1, S2 3/6 sobeida Respiratory: dec at bases but couldn't appreciate rales. phases well Abdomen: soft, nt Extremities: warm. no overt edema Access: right fem cvc site intact. LABS: Reviewed. IMAGING: Reviewed. MEDICATIONS: Reviewed. ASSESSMENT: 67 F Cardiogenic shock - recovering Acute systolic HF Acute pulm edema sec to above recovering Acute hypoxic resp failure - recovering ASHLEY sec to above - recovering Tx for sepsis of unknown origin - did not spike temp post rigors and wbc not maturing; rigors may have been hypoperfusion in origin. nonetheless await return on cx and clincal status and likely can dc abx. PLAN: Seems to be doing markly well now. Wean off HFO2 this am to NC. allow forward flow and see if she mobilizes fluid or if diuretics ultimately needed given ef. Should come off dopa today. dc cvc later. She likes rhythm control and Dr. Magallanes following. anticoag. time and observe. Care per primary team Disposition: ICU with hospitalists Code Status: Full Critical Care Time: 25min Michel Mari DO
[2017-10-11 13:08] LABS: Albumin 3.2 g/dL (3.2-5.2); Direct Bilirubin 0.2 mg/dL (0.03-0.18); Globulin 1.9 g/dL (2-4); Indirect Bilirubin 0.7 mg/dL (0.3-1.0); Total Bilirubin 0.9 mg/dL (0.2-1.0); Total Protein 5.1 g/dL (6.4-8.9)
--- NOTE | 2017-10-11 19:11 | RAD ---
Indication: LFT elevations. Comparison: October 09, 2017 CT chest. Technique: RIGHT upper quadrant ultrasound. Report: Appropriate direction flow documented in the portal and hepatic veins. 15.1 cm liver is normal in echogenicity. Negative for focal hepatic lesions. Negative for intrahepatic biliary dilatation. 2.9 mm common bile duct. Adequately distended gallbladder is remarkable for wall thickening most prominent anteriorly measuring up to 1.5 cm with hypoechoic gallbladder wall edema. No visualized stones or biliary sludge. No pericholecystic fluid evident. Negative for sonographic Wilcox's sign. The pancreatic tail is partially obscured due to bowel gas with the visualized pancreas unremarkable. RIGHT pleural effusion and small pericardial effusion noted. No ascites evident. 10.0 x 4.8 x 3.8 cm RIGHT kidney is unremarkable. IMPRESSION: 1. Nonspecific gallbladder wall thickening. No gallstones, pericholecystic fluid, or sonographic Wlicox's sign. Acalculous cholecystitis in the appropriate clinical setting is not excluded. 2. RIGHT pleural effusion and small pericardial effusion noted. No ascites evident. 3. Unremarkable sonographic appearance of the liver.
[2017-10-12] MEDS: DOPAMINE IV SCH (05:15)
[2017-10-12] MEDS: NS 0.9% IV SCH (05:15)
[2017-10-12 05:32] LABS: Hematocrit 37 % (35-47); Hemoglobin 12.4 g/dl (12.0-16.0); Mean Corpuscular HGB Conc 34 g/dl (31-36); Mean Corpuscular Hemoglobin 30 pg (27-31); Mean Corpuscular Volume 89 fL (80-97); Mean Platelet Volume 8 um3 (7.4-10.4); Red Blood Count 4.14 10^6/ul (4.0-5.4); Red Cell Distribution Width 14 % (10.5-15); White Blood Count 6.3 10^3/ul (3.5-10.8)
[2017-10-12 05:42] LABS: Albumin 2.8 g/dL (3.2-5.2); BUN/Creatinine Ratio 22.2 (8-20); Calcium 8.2 mg/dL (8.6-10.3); EGFR African American 71.7 (>60); EGFR Non-African American 55.8 (>60); Globulin 1.8 g/dL (2-4); Potassium 4.1 mmol/L (3.5-5.0); Total Bilirubin 0.5 mg/dL (0.2-1.0); Total Protein 4.6 g/dL (6.4-8.9)
[2017-10-12] MEDS: Insulin LISPRO* 1 UNITS UNIT SUBCUT SCH ×4 (07:35→21:06)
[2017-10-12] MEDS: ZOSYN 3.375 GM Q8H per EXTENDED INFUSION IVPB SCH ×2 (07:51)
--- NOTE | 2017-10-12 08:15 | PN ---
Subjective Date of Service: 10/12/17 Interval History: HOSPITALIST PROGRESS NOTE Patient seen and examined at bedside. She feels well today. Still has some diarrhea, but states this is not unusual for her. Usually has loose stools after meals and has to wait to leave home as she has significant urgency. Three days prior to admission patient had [employer] (not unusual for her). ate same thing and did not get sick. Family History: Unchanged from Admission Social History: Unchanged from Admission Past Medical History: Unchanged from Admission Objective Active Medications: Acetaminophen (Tylenol Tab*) 650 mg PO Q4H PRN PRN Reason: FEVER/PAIN Al Hydrox/Mg Hydrox/Simethicone (Maalox Plus*) 30 ml PO Q6H PRN PRN Reason: INDIGESTION Dextrose (D50w Syringe 50 Ml*) 12.5 gm IV PUSH .FOR FS < 60 - SS PRN PRN Reason: FS < 60 Last Admin: 10/11/17 08:37 Dose: 12.5 gm Docusate Sodium (Colace Cap*) 100 mg PO BID [facility] Last Admin: 10/11/17 20:23 Dose: Not Given Famotidine (Pepcid Iv*) 20 mg IV SLOW PU BID [facility] Last Admin: 10/11/17 20:24 Dose: 20 mg Piperacillin Sod/Tazobactam (Sod 3.375 gm/ Sodium Chloride) 100 mls @ 25 mls/ hr IVPB Q8H [facility] Last Admin: 10/12/17 07:51 Dose: 25 mls/hr Vancomycin HCl 750 mg/ Sodium (Chloride) 250 mls @ 166.667 mls/hr IVPB Q12H [facility] Last Admin: 10/11/17 20:25 Dose: 166.667 mls/hr Insulin Human Lispro (Humalog*) 0 units SUBCUT ACHS [facility] PRN Reason: Protocol Last Admin: 10/12/17 07:35 Dose: Not Given Oxycodone/Acetaminophen (Percocet 5/325 Tab*) 1 tab PO Q4H PRN PRN Reason: Pain Pharmacy Consult (Zosyn Per Pharmacy*) 1 note FOLLOW UP .ZOSYN PER PHARMACY [facility] Pharmacy Profile Note (Vancomycin Trough Check) 1 note FOLLOW UP 0830 ONE Stop: 10/12/17 08:31 Prochlorperazine Edisylate (Compazine Inj*) 5 mg IV Q6H PRN PRN Reason: NAUSEA/VOMITING Last Admin: 10/10/17 17:33 Dose: 1 ml Rivaroxaban (Xarelto (*)) 20 mg PO DAILY [facility] Last Admin: 10/11/17 11:00 Dose: 20 mg Temazepam (Restoril Cap*) 15 mg PO BEDTIME PRN PRN Reason: INSOMNIA Vital Signs - 8 hr 10/12/17 10/12/17 10/12/17 06:01 07:00 07:32 Temperature 99.3 F Pulse Rate 62 63 Respiratory 22 30 Rate Blood Pressure 117/63 (mmHg) O2 Sat by Pulse 97 96 Oximetry Oxygen Devices in Use Now: None Appearance: Pleasant elderly lady sitting up in a chair in NAD. Eyes: No Scleral Icterus Ears/Nose/Mouth/Throat: Mucous Membranes Moist Neck: Trachea Midline Respiratory: Symmetrical Chest Expansion and Respiratory Effort, Clear to Auscultation Cardiovascular: RRR - Normal S1 and S2 Abdominal: NL Sounds; No Tenderness; No Distention Neurological: Alert and Oriented x 3, NL Muscle Strength and Tone Result Diagrams: 10/12/17 05:10 10/12/17 05:10 Assess/Plan/Problems-Billing Assessment: Mrs. Ayers is a 67 yo F with h/o HTN, PAF, DM2 who presented with persistent a. fib, complicated by cardiogenic shock. - Patient Problems (1) Hypotension Comment: - On 10/10/17 at 5 PM pt developed hypotension with loose BM's and c/o nausea and abdominal cramping. Unclear if reaction to medication, did not respond to IVF boluses. - Cardioverted by Dr. Magallanes, placed on BIPAP and dopamine drip. - Suspected cardiogenic shock vs septic shock, but no signs of infection at this time. - Blood cultures growing Gram + - suspect contaminant - continue antibiotics for now until further speciation. (2) Atrial fibrillation Comment: - S/p cardioversion on 10/10/17. - Remains in NSR - continue Amiodarone PO and Xarelto. - Plan for echo tomorrow. (3) Systolic CHF Comment: - Echo showed EF 20%, severe pulm HTN and mod to severe MR. - Appears to be stable at this time. - For repeat echo tomorrow to reasses EF now she's in NSR. (4) DM type 2 (diabetes mellitus, type 2) Comment: - Change diet to consistent carb and continue Lispro SS. (5) LFT elevation Comment: - Suspect secondary to passive liver congestion due to CHF - trending down. - Continue to monitor closely while on Amiodarone. - Liver ultrasound appreciated - some GB wall thickening, but no clinical signs of cholecystitis. - Acute hepatitis panel was negative. (6) DVT prophylaxis Comment: - Rocio (7) Full code status Status and Disposition: Inpatient. Transfer to Telemetry floor.
[2017-10-12] MEDS ORDERED: Vancomycin Trough Check NOTE FOLLOW UP ONE (08:30)
[2017-10-12] MEDS: Docusate CAP* 100 MG PO SCH ×2 (08:56→21:06)
[2017-10-12] MEDS: Carvedilol TAB* 3.125 MG PO SCH ×2 (09:26→21:06)
[2017-10-12] MEDS: Rivaroxaban TAB(*) 20 MG TAB PO SCH (09:26)
[2017-10-12] MEDS: Amiodarone TAB* 200 MG PO SCH ×2 (09:26→21:06)
[2017-10-12] MEDS: Lisinopril TAB* 5 MG PO SCH (09:26)
[2017-10-12] MEDS: Famotidine IV* 10 MG/ML 2 ML (20 mg) IV SLOW PU SCH ×2 (09:26→21:06)
[2017-10-12] MEDS: Vancomycin(*) 750 MG in NS 0.9% 250 ML* 250 ML IVPB SCH ×2 (10:40→21:05)
[2017-10-12] MEDS ORDERED: Vancomycin per Pharmacy* NOTE FOLLOW UP PRN (14:07)
[2017-10-13] MEDS: Insulin LISPRO* 1 UNITS UNIT SUBCUT SCH ×4 (07:47→20:38)
[2017-10-13] MEDS: Amiodarone TAB* 200 MG PO SCH ×2 (08:13→20:38)
[2017-10-13] MEDS: Carvedilol TAB* 3.125 MG PO SCH ×2 (08:13→20:38)
[2017-10-13] MEDS: Rivaroxaban TAB(*) 20 MG TAB PO SCH (08:13)
[2017-10-13] MEDS: Docusate CAP* 100 MG PO SCH ×2 (08:13→20:39)
[2017-10-13] MEDS: Lisinopril TAB* 5 MG PO SCH (08:14)
[2017-10-13] MEDS: Famotidine IV* 10 MG/ML 2 ML (20 mg) IV SLOW PU SCH ×2 (08:14→20:38)
[2017-10-13] MEDS: Vancomycin(*) 750 MG in NS 0.9% 250 ML* 250 ML IVPB SCH (08:19)
--- NOTE | 2017-10-13 14:17 | PN ---
Subjective Date of Service: 10/13/17 Interval History: HOSPITALIST PROGRESS NOTE Patient seen and examined at bedside. She feels well today. C/o LE edema, but no dyspnea or chest pain. Family History: Unchanged from Admission Social History: Unchanged from Admission Past Medical History: Unchanged from Admission Objective Active Medications: Acetaminophen (Tylenol Tab*) 650 mg PO Q4H PRN PRN Reason: FEVER/PAIN Al Hydrox/Mg Hydrox/Simethicone (Maalox Plus*) 30 ml PO Q6H PRN PRN Reason: INDIGESTION Amiodarone HCl (Cordarone Tab*) 200 mg PO BID [facility] Last Admin: 10/13/17 08:13 Dose: 200 mg Carvedilol (Coreg Tab*) 3.125 mg PO BID [facility] Last Admin: 10/13/17 08:13 Dose: 3.125 mg Dextrose (D50w Syringe 50 Ml*) 12.5 gm IV PUSH .FOR FS < 60 - SS PRN PRN Reason: FS < 60 Last Admin: 10/11/17 08:37 Dose: 12.5 gm Docusate Sodium (Colace Cap*) 100 mg PO BID [facility] Last Admin: 10/13/17 08:13 Dose: Not Given Famotidine (Pepcid Iv*) 20 mg IV SLOW PU BID [facility] Last Admin: 10/13/17 08:14 Dose: 20 mg Vancomycin HCl 750 mg/ Sodium (Chloride) 250 mls @ 166.667 mls/hr IVPB Q12H [facility] Last Admin: 10/13/17 08:19 Dose: 166.667 mls/hr Insulin Human Lispro (Humalog*) 0 units SUBCUT ACHS [facility] PRN Reason: Protocol Last Admin: 10/13/17 12:16 Dose: 2 unit Lisinopril (Prinivil Tab*) 2.5 mg PO DAILY [facility] Last Admin: 10/13/17 08:14 Dose: 2.5 mg Oxycodone/Acetaminophen (Percocet 5/325 Tab*) 1 tab PO Q4H PRN PRN Reason: Pain Pharmacy Consult (Vancomycin Per Pharmacy*) 1 note FOLLOW UP . PRN PRN Reason: PER PROTOCOL Prochlorperazine Edisylate (Compazine Inj*) 5 mg IV Q6H PRN PRN Reason: NAUSEA/VOMITING Last Admin: 10/10/17 17:33 Dose: 1 ml Rivaroxaban (Xarelto (*)) 20 mg PO DAILY [facility] Last Admin: 10/13/17 08:13 Dose: 20 mg Temazepam (Restoril Cap*) 15 mg PO BEDTIME PRN PRN Reason: INSOMNIA Vital Signs - 8 hr 10/13/17 10/13/17 07:12 07:58 Temperature 98.2 F Pulse Rate 59 Respiratory 16 18 Rate Blood Pressure 135/72 (mmHg) O2 Sat by Pulse 98 Oximetry Oxygen Devices in Use Now: None Appearance: Pleasant elderly lady sitting up in bed in NAD. Eyes: No Scleral Icterus Ears/Nose/Mouth/Throat: Mucous Membranes Moist Neck: Trachea Midline Respiratory: Symmetrical Chest Expansion and Respiratory Effort, Clear to Auscultation Cardiovascular: RRR - Normal S1 and S2 Extremities: - - Mild to moderate LE pitting edema Neurological: Alert and Oriented x 3, NL Muscle Strength and Tone Result Diagrams: 10/12/17 05:10 10/12/17 05:10 Assess/Plan/Problems-Billing Assessment: Mrs. Ayers is a 67 yo F with h/o HTN, PAF, DM2 who presented with persistent a. fib, complicated by cardiogenic shock. - Patient Problems (1) Hypotension Comment: - On 10/10/17 at 5 PM pt developed hypotension with loose BM's and c/o nausea and abdominal cramping. Unclear if reaction to medication, did not respond to IVF boluses. - Cardioverted by Dr. Magallanes, placed on BIPAP and dopamine drip. - Suspected cardiogenic shock vs septic shock, but no signs of infection at this time. - Blood cultures growing strep viridans and staph lugdenensis - ID consult requested. (2) Atrial fibrillation Comment: - S/p cardioversion on 10/10/17. - Remains in NSR - continue Amiodarone PO and Xarelto. - Repeat echo is unchanged. (3) Systolic CHF Comment: - Echo showed EF 20%, severe pulm HTN and mod to severe MR. - Appears to be stable at this time. - Start low dose Furosemide. (4) DM type 2 (diabetes mellitus, type 2) Comment: - Change diet to consistent carb and continue Lispro SS. (5) LFT elevation Comment: - Suspect secondary to passive liver congestion due to CHF - trending down. - Continue to monitor closely while on Amiodarone. - Liver ultrasound appreciated - some GB wall thickening, but no clinical signs of cholecystitis. - Acute hepatitis panel was negative. (6) V-tach Comment: - Episode of 24 beats of Vtach, asymptomatic 10/12/17. - D/w Cardiology - continue Amiodarone, will need Life Vest prior to discharge. (7) DVT prophylaxis Comment: - Xarelto (8) Full code status Status and Disposition: Inpatient. Anticipate d/c in AM if Life Vest available.
[2017-10-13] MEDS: Furosemide TAB* 20 MG PO SCH (14:53)
--- NOTE | 2017-10-13 21:23 | CONS ---
CONSULTATION REPORT: DATE OF CONSULT: 10/13/17 - ROOM #[id number] REQUESTING PHYSICIAN: Dr. Sanchez. CONSULTING SERVICE: Infectious Disease. REASON FOR CONSULTATION: Positive blood cultures, question true positive. IMPRESSION: Cardiomyopathy with congestive heart failure, left ventricular ejection fraction 20%. She has had no recent fevers, chills, sweats or other constitutional symptoms. Her white blood cell count is normal. She is afebrile. On admission, blood cultures were drawn 1/4 bottles were growing viridans strep and a staph lugdunensis. These are skin price. Because there are 2 different skin price and only one bottle and no other symptom suggestive of infection, I think it is reasonable to assume these are contaminant of the blood drawing process. We will discontinue vancomycin. HISTORY OF PRESENT ILLNESS: This is a 67-year-old woman with atrial fibrillation, admitted with paroxysmal nocturnal dyspnea and dyspnea on exertion , found to be in atrial fibrillation with rapid ventricular response and ejection fraction of 20%. She had had no fevers, chills, sweats, anorexia, or weight loss. She had had some loose stools. She was treated for upper respiratory infection 2 weeks ago with an antibiotic, she is not sure which. She has had no cough or sputum production. She has no prosthetic material present. She has had no fevers while she has been here. She had urine culture that was negative. She had a CAT scan of the chest that showed no pulmonary embolus and no infiltrate. Her breathing is improving on diuresis. PAST MEDICAL HISTORY: 1. Atrial fibrillation. 2. Diabetes. 3. Hypertension. 4. Hyperlipidemia. MEDICATIONS: 1. Tylenol. 2. Amiodarone. 3. Coreg. 4. Famotidine. 5. Lasix. 6. Lisinopril. 7. Rivaroxaban. 8. Temazepam. 9. Vancomycin. ALLERGIES: TRULICITY cause GI upset and dizziness. FAMILY HISTORY: Father after he fell out of window and mother had breast cancer. SOCIAL HISTORY: She is from [place], came here 30 years ago. Lives with her in [facility]. She is a nonsmoker. REVIEW OF SYSTEMS: A 14-point review of systems is all negative except as noted above. PHYSICAL EXAM: Vital Signs: Temperature 36.8, heart rate 60, respiratory rate 18, blood pressure 130/70, O2 saturation 98% on room air. In general, she is awake, not in distress. Neurologic: She is oriented x3, follows all commands. Moves all extremities. HEENT: There is no conjunctival hemorrhage. Oropharynx: Without lesions. Heart: Regular without murmurs, rubs, or gallops. Lungs: Decreased breath sounds half way up bilaterally. There are no wheezes or rales. Abdomen: Soft, nontender, nondistended. There are bowel sounds present. Skin: There is no rash or splinter hemorrhages. Musculoskeletal: There is no spine tenderness to palpation or joint synovitis. DIAGNOSTIC STUDIES/LAB DATA: White blood cell count 6, hemoglobin 12.4, platelets 178. Creatinine is 0.9, ALT 207. Please see impressions and recommendations as outlined above, which I have discussed with Dr. Sanchez. Thank you for asking me to see Ms. Rowell in consultation. [id number]/[facility] #: [id number] MTDD
[2017-10-14 07:19] LABS: Albumin 3.1 g/dL (3.2-5.2); Calcium 8.6 mg/dL (8.6-10.3); EGFR African American 70.9 (>60); EGFR Non-African American 55.1 (>60); Globulin 2.3 g/dL (2-4); Potassium 4.1 mmol/L (3.5-5.0); Total Bilirubin 0.8 mg/dL (0.2-1.0); Total Protein 5.4 g/dL (6.4-8.9)
[2017-10-14] MEDS: Insulin LISPRO* 1 UNITS UNIT SUBCUT SCH ×4 (08:18→20:52)
[2017-10-14] MEDS: Rivaroxaban TAB(*) 20 MG TAB PO SCH (08:24)
[2017-10-14] MEDS: Amiodarone TAB* 200 MG PO SCH ×2 (08:24→20:51)
[2017-10-14] MEDS: Furosemide TAB* 20 MG PO SCH (08:24)
[2017-10-14] MEDS: Docusate CAP* 100 MG PO SCH ×2 (08:25→20:51)
[2017-10-14] MEDS: Famotidine IV* 10 MG/ML 2 ML (20 mg) IV SLOW PU SCH ×2 (08:25→20:52)
[2017-10-14] MEDS: Lisinopril TAB* 5 MG PO SCH (08:25)
[2017-10-14] MEDS: Carvedilol TAB* 3.125 MG PO SCH ×2 (08:25→20:51)
[2017-10-14] MEDS: Sodium Citrate/Citric Acid* 15 ML UDC PO SCH ×3 (09:05→20:52)
[2017-10-14] MEDS ORDERED: Amiodarone TAB* 200 MG PO ONE (11:52)
--- NOTE | 2017-10-14 12:13 | PN ---
Subjective Date of Service: 10/14/17 - cc: sudden Interval History: I saw the patient twice today: This morning after breakfast: the patient was feeling well, breathing was good. Denied orthopnea, did not sleep well due to noise. No palpitation. No chest pain. The patient was anxious to go home and asking about activity levels. The patient then suffered sudden (off monitor post shower) and resuscitated. She stated she felt dizzy all of a sudden sitting in bed (getting Zoll training) . She denied feeling anxious or SOB and denied chest pain. Post SD she feels OK, no new symptoms. Medications Active Medications: Acetaminophen (Tylenol Tab*) 650 mg PO Q4H PRN PRN Reason: FEVER/PAIN Al Hydrox/Mg Hydrox/Simethicone (Maalox Plus*) 30 ml PO Q6H PRN PRN Reason: INDIGESTION Amiodarone HCl (Cordarone Tab*) 400 mg PO BID [facility] Carvedilol (Coreg Tab*) 3.125 mg PO BID [facility] Last Admin: 10/14/17 08:25 Dose: 3.125 mg Citric Acid/Sodium Citrate (Bicitra*) 15 ml PO TID [facility] Last Admin: 10/14/17 09:05 Dose: 15 ml Dextrose (D50w Syringe 50 Ml*) 12.5 gm IV PUSH .FOR FS < 60 - SS PRN PRN Reason: FS < 60 Last Admin: 10/11/17 08:37 Dose: 12.5 gm Docusate Sodium (Colace Cap*) 100 mg PO BID [facility] Last Admin: 10/14/17 08:25 Dose: Not Given Famotidine (Pepcid Iv*) 20 mg IV SLOW PU BID [facility] Last Admin: 10/14/17 08:25 Dose: 20 mg Furosemide (Lasix Tab*) 20 mg PO DAILY [facility] Last Admin: 10/14/17 08:24 Dose: 20 mg Insulin Human Lispro (Humalog*) 0 units SUBCUT ACHS [facility] PRN Reason: Protocol Last Admin: 10/14/17 08:18 Dose: Not Given Lisinopril (Prinivil Tab*) 5 mg PO DAILY [facility] Last Admin: 10/14/17 08:25 Dose: 5 mg Oxycodone/Acetaminophen (Percocet 5/325 Tab*) 1 tab PO Q4H PRN PRN Reason: Pain Prochlorperazine Edisylate (Compazine Inj*) 5 mg IV Q6H PRN PRN Reason: NAUSEA/VOMITING Last Admin: 10/10/17 17:33 Dose: 1 ml Rivaroxaban (Xarelto (*)) 20 mg PO DAILY [facility] Last Admin: 10/14/17 08:24 Dose: 20 mg Temazepam (Restoril Cap*) 15 mg PO BEDTIME PRN PRN Reason: INSOMNIA Objective Vital Signs: Temp Pulse Resp BP Pulse Ox 98.3 F 62 20 147/67 96 10/14/17 07:29 10/14/17 07:29 10/14/17 07:29 10/14/17 07:29 10/14/17 07:29 Oxygen Devices in Use Now: None, Nasal Cannula Appearance: petite somewhat older woman, seated, in NAD. Eyes: No Scleral Icterus, PERRLA Ears/Nose/Mouth/Throat: Clear Oropharnyx, Mucous Membranes Moist Neck: NL Appearance and Movements; NL JVP Respiratory: Symmetrical Chest Expansion and Respiratory Effort - diminished breathsounds in the bases bilaterally. Cardiovascular: RRR - no murmurs. Abdominal: NL Sounds; No Tenderness; No Distention, No Hepatosplenomegaly Extremities: No Edema Skin: No Rash or Ulcers Neurological: Alert and Oriented x 3, NL Muscle Strength and Tone Lines/Tubes/Other Access: Clean, Dry and Intact Peripheral IV Laboratory Results: 10/12/17 05:10 10/14/17 06:25 Total Bilirubin 0.80 mg/dL (0.2-1.0) 10/14/17 06:25 Direct Bilirubin 0.20 mg/dL (0.03-0.18) H 10/11/17 08:39 Indirect Bilirubin 0.7 mg/dL (0.3-1.0) 10/11/17 08:39 AST 85 U/L (13-39) H 10/14/17 06:25 ALT 165 U/L (7-52) H 10/14/17 06:25 Alkaline Phosphatase 87 U/L (34-104) 10/14/17 06:25 Total Protein 5.4 g/dL (6.4-8.9) L 10/14/17 06:25 Albumin 3.1 g/dL (3.2-5.2) L 10/14/17 06:25 Globulin 2.3 g/dL (2-4) 10/14/17 06:25 Albumin/Globulin Ratio 1.3 (1-3) 10/14/17 06:25 TSH 1.39 mcIU/mL (0.34-5.60) 10/10/17 06:15 10/09/17 10/09/17 10/10/17 14:30 21:00 18:13 Troponin I 0.01 0.01 0.01 10/10/17 10/11/17 10/11/17 21:08 00:54 05:35 Troponin I 0.02 0.23 H* 0.03 Diagnostic Imaging: ECHO 10/09/17 ([facility]) EF <20%, AV sclerosis, moderate to severe MR, Moderate to severe TR, PA pr 67 mmHg. Pleural and pericardial effusions seen. EKG Data: Monitor today: Pre event: NSR, occasional PVC's (off monitor at time of sudden ). ECG post SD: NSR vs. ectopic atrial pacer 70 bpm, QRS axis + 30, normal AV/IV conduction times, inverted T waves precordial leads, less pronounced c/w baseline ECG's this admission. Assessment/Plan 67 yo female admitted with afib uncertain duration, RVR, severely depressed EF, CAD risks of DM, HTN, dyslipidemia. On admission mild elevation of troponins and LFT's up c/w congestion as well as pleural and PC effusions. Several episodes of NSVT as fast as 120 bpm on telemetry 10/13/17. Pt s/p cardioversion and the plan was to send home on amiodarone with a Zoll external defibrillator and pursue out patient work up. The patient had sudden off the monitor, dizzy prior to LOC. SD: Statistically likely VT to VF but a differential of bradyarrhythmias as well. Increase amiodarone from 200 bid to 400 BID. Continuous monitoring. Cardiac catheterization to rule in or out CAD contributing to CM/SD. PAF: Amiodarone as above, Had Xarelto this AM, hold for cath, resume as soon as able (or other anticoagulant if changes needed based on cath findings). Cardiomyopathy: Continue Coreg, prinivil. Adding BNP to labs, may benefit from aldactone in the future. CAD risks: Not on statin due to arm myalgias on lipator. Added lipid panel to evaluate.
[2017-10-14 12:56] LABS: Hematocrit 41 % (35-47); Hemoglobin 13.9 g/dl (12.0-16.0); Mean Corpuscular HGB Conc 34 g/dl (31-36); Mean Corpuscular Hemoglobin 30 pg (27-31); Mean Corpuscular Volume 90 fL (80-97); Mean Platelet Volume 8 um3 (7.4-10.4); Red Cell Distribution Width 14 % (10.5-15); White Blood Count 6.7 10^3/ul (3.5-10.8)
[2017-10-14 13:11] LABS: BUN/Creatinine Ratio 21.2 (8-20); Calcium 8.5 mg/dL (8.6-10.3); EGFR African American 67.8 (>60); EGFR Non-African American 52.7 (>60); Potassium 3.9 mmol/L (3.5-5.0)
[2017-10-14 13:13] LABS: Troponin I 0.02 ng/mL (<0.04)
--- NOTE | 2017-10-14 15:05 | PN ---
Subjective Date of Service: 10/14/17 Interval History: HOSPITALIST PROGRESS NOTE Patient seen and examined at bedside. Plan for today was to discharge home after Life Vest training. Patient requested to take a shower and Telemetry was discontinued. Zaida inbound customer service representative arrived when patient had just finished her shower and Telemetry had not yet been resumed. I saw the patient at that time and she had no complaints, was excited to go home. RN went in and checked her FS and shortly after when she returned to resume Telemetry patient was unconscious on the floor, receiving CPR by Zaida will. ABC alert was called around 11:30 and the patient was described as cyanotic and pulseless. She regained consciousness, was moved to bed and at that point had a good pulse with normal VS and Tele showing NSR. Family History: Unchanged from Admission Social History: Unchanged from Admission Past Medical History: Unchanged from Admission Objective Active Medications: Acetaminophen (Tylenol Tab*) 650 mg PO Q4H PRN PRN Reason: FEVER/PAIN Al Hydrox/Mg Hydrox/Simethicone (Maalox Plus*) 30 ml PO Q6H PRN PRN Reason: INDIGESTION Amiodarone HCl (Cordarone Tab*) 400 mg PO BID [facility] Carvedilol (Coreg Tab*) 3.125 mg PO BID [facility] Last Admin: 10/14/17 08:25 Dose: 3.125 mg Citric Acid/Sodium Citrate (Bicitra*) 15 ml PO TID [facility] Last Admin: 10/14/17 14:21 Dose: 15 ml Dextrose (D50w Syringe 50 Ml*) 12.5 gm IV PUSH .FOR FS < 60 - SS PRN PRN Reason: FS < 60 Last Admin: 10/11/17 08:37 Dose: 12.5 gm Docusate Sodium (Colace Cap*) 100 mg PO BID [facility] Last Admin: 10/14/17 08:25 Dose: Not Given Famotidine (Pepcid Iv*) 20 mg IV SLOW PU BID [facility] Last Admin: 10/14/17 08:25 Dose: 20 mg Furosemide (Lasix Tab*) 20 mg PO DAILY [facility] Last Admin: 10/14/17 08:24 Dose: 20 mg Insulin Human Lispro (Humalog*) 0 units SUBCUT ACHS [facility] PRN Reason: Protocol Last Admin: 10/14/17 12:41 Dose: 2 unit Lisinopril (Prinivil Tab*) 5 mg PO DAILY [facility] Last Admin: 10/14/17 08:25 Dose: 5 mg Oxycodone/Acetaminophen (Percocet 5/325 Tab*) 1 tab PO Q4H PRN PRN Reason: Pain Prochlorperazine Edisylate (Compazine Inj*) 5 mg IV Q6H PRN PRN Reason: NAUSEA/VOMITING Last Admin: 10/10/17 17:33 Dose: 1 ml Temazepam (Restoril Cap*) 15 mg PO BEDTIME PRN PRN Reason: INSOMNIA Vital Signs - 8 hr 10/14/17 10/14/17 07:20 07:29 Temperature 98.3 F Pulse Rate 62 Respiratory 18 20 Rate Blood Pressure 147/67 (mmHg) O2 Sat by Pulse 96 Oximetry Oxygen Devices in Use Now: Nasal Cannula - 2 liters Appearance: Pleasant lady lying in bed in NAD. Eyes: No Scleral Icterus Ears/Nose/Mouth/Throat: Mucous Membranes Moist Respiratory: Symmetrical Chest Expansion and Respiratory Effort, Clear to Auscultation Cardiovascular: RRR - Normal S1 and S2 Abdominal: NL Sounds; No Tenderness; No Distention Neurological: Alert and Oriented x 3, NL Muscle Strength and Tone Result Diagrams: 10/14/17 12:46 10/14/17 12:46 Assess/Plan/Problems-Billing Assessment: Mrs. Ayers is a 67 yo F with h/o HTN, PAF, DM2 who presented with persistent a. fib, complicated by cardiogenic shock. - Patient Problems (1) Sudden Comment: - Unfortunately patient was not on Tele when this happened, but she was pulseless, so suspect VT to VF transformation. - Cardiology input appreciated - increased Amiodarone dose. - Initially plan was to d/c home with Life Vest and f/u with Dr. Magallanes as outpatient to see if her EF recovered. He was planning to do stress test and/or cardiac cath as outpatient, but now with this episode, plans have changed. - She'll have a cardiac cath done 10/15/17. (2) Hypotension Comment: - On 10/10/17 at 5 PM pt developed hypotension with loose BM's and c/o nausea and abdominal cramping. Unclear if reaction to medication, did not respond to IVF boluses. - Cardioverted by Dr. Magallanes, placed on BIPAP and dopamine drip. - Suspected cardiogenic shock vs septic shock, but no signs of infection at this time. - Blood cultures growing strep viridans and staph lugdenensis - ID consult appreciated - suspect contamination and recommended d/c antibiotics. (3) Atrial fibrillation Comment: - S/p cardioversion on 10/10/17. - Remains in NSR - continue Amiodarone PO and hold Xarelto for cath tomorrow. - Repeat echo is unchanged. (4) Systolic CHF Comment: - Echo showed EF 20%, severe pulm HTN and mod to severe MR. - Continue low dose Furosemide and ACEI. (5) DM type 2 (diabetes mellitus, type 2) Comment: - Continue Lispro SS. (6) LFT elevation Comment: - Suspect secondary to passive liver congestion due to CHF - trending down. - Continue to monitor closely while on Amiodarone. - Liver ultrasound appreciated - some GB wall thickening, but no clinical signs of cholecystitis. - Acute hepatitis panel was negative. (7) V-tach Comment: - Episode of 24 beats of Vtach, asymptomatic 10/12/17, but sudden today. - Increase Amiodarone and plan for cath tomorrow. (8) DVT prophylaxis Comment: - Xarelto on hold in preparation for cath. - SCDs. (9) Full code status Status and Disposition: Inpatient. and daughter updated at bedside.
[2017-10-15] MEDS ORDERED: Magnesium Sulfate 1 GM IV* 1 GM/100 ML BAG IV ONE (01:54)
[2017-10-15 05:39] LABS: BUN/Creatinine Ratio 18.6 (8-20); Blood Urea Nitrogen 16 mg/dL (6-24); CO2 Carbon Dioxide 21 mmol/L (22-32); Calcium 8.3 mg/dL (8.6-10.3); Chloride 110 mmol/L (101-111); Cholesterol 123 mg/dL; EGFR African American 84.4 (>60); EGFR Non-African American 65.6 (>60); Glucose 129 mg/dL (70-100); HDL Cholesterol 25.2 mg/dL; LDL Cholesterol 72 mg/dL; Magnesium 2.2 mg/dL (1.9-2.7); Sodium 141 mmol/L (133-145); Triglycerides 131 mg/dL
[2017-10-15 05:41] LABS: Anion Gap 10 mmol/L (2-11)
[2017-10-15] MEDS ORDERED: Amiodarone 150 MG IVPREMIX* 150 MG/100 ML BAG IV ONE (06:06)
--- NOTE | 2017-10-15 06:07 | PN ---
Progress Note - Progress Note Date of Service: 10/15/17 Note: Pt had approx 20 beats of V. fib, c/o feeling dizzy, several minutes later had another run of several beats of v.fib appearing telem strip. Labs reviewed. On exam: AAOx3 comfortable Resp: CTA b/l CV: RRR, no murmur Neuro: intact. A/P due to episodes of V. Tach and what appeared to be V. fib pt will be transferred to ICU. Cath planned for today.D/w Dr. Calabrese who recommended Amiodarone load 150 mg IV x1 and additional 2 grams of Mg (aware of Mg level at 2.2 this aM)
[2017-10-15] MEDS ORDERED: Magnesium Sulfate 2 GM IV* 2 GM/50 ML BAG IVPB ONE (06:08)
[2017-10-15] MEDS ORDERED: Magnesium Sulfate 2 GM IV* 2 GM/50 ML BAG ONE (06:18)
[2017-10-15] MEDS ORDERED: NS 0.9% 1000 ML* 1,000 ML IV SCH ×2 (08:00→11:30)
--- NOTE | 2017-10-15 08:31 | PN ---
Subjective Date of Service: 10/15/17 Interval History: HOSPITALIST PROGRESS NOTE Patient seen and examined at bedside. Family History: Unchanged from Admission Social History: Unchanged from Admission Past Medical History: Unchanged from Admission Objective Active Medications: Acetaminophen (Tylenol Tab*) 650 mg PO Q4H PRN PRN Reason: FEVER/PAIN Al Hydrox/Mg Hydrox/Simethicone (Maalox Plus*) 30 ml PO Q6H PRN PRN Reason: INDIGESTION Amiodarone HCl (Cordarone Tab*) 400 mg PO BID [facility] Last Admin: 10/14/17 20:51 Dose: 400 mg Carvedilol (Coreg Tab*) 3.125 mg PO BID [facility] Last Admin: 10/14/17 20:51 Dose: 3.125 mg Citric Acid/Sodium Citrate (Bicitra*) 15 ml PO TID [facility] Last Admin: 10/14/17 20:52 Dose: 15 ml Dextrose (D50w Syringe 50 Ml*) 12.5 gm IV PUSH .FOR FS < 60 - SS PRN PRN Reason: FS < 60 Last Admin: 10/11/17 08:37 Dose: 12.5 gm Docusate Sodium (Colace Cap*) 100 mg PO BID [facility] Last Admin: 10/14/17 20:51 Dose: Not Given Famotidine (Pepcid Iv*) 20 mg IV SLOW PU BID [facility] Last Admin: 10/14/17 20:52 Dose: 20 mg Furosemide (Lasix Tab*) 20 mg PO DAILY [facility] Last Admin: 10/14/17 08:24 Dose: 20 mg Sodium Chloride (Ns 0.9% 1000 Ml*) 1,000 mls @ 25 mls/hr IV PER RATE [facility] Insulin Human Lispro (Humalog*) 0 units SUBCUT ACHS [facility] PRN Reason: Protocol Last Admin: 10/14/17 20:52 Dose: 2 unit Lisinopril (Prinivil Tab*) 5 mg PO DAILY [facility] Last Admin: 10/14/17 08:25 Dose: 5 mg Oxycodone/Acetaminophen (Percocet 5/325 Tab*) 1 tab PO Q4H PRN PRN Reason: Pain Prochlorperazine Edisylate (Compazine Inj*) 5 mg IV Q6H PRN PRN Reason: NAUSEA/VOMITING Last Admin: 10/10/17 17:33 Dose: 1 ml Temazepam (Restoril Cap*) 15 mg PO BEDTIME PRN PRN Reason: INSOMNIA Vital Signs - 8 hr 10/15/17 10/15/17 10/15/17 03:53 06:13 06:52 Temperature 98.0 F 98.3 F Pulse Rate 57 78 Respiratory 14 22 20 Rate Blood Pressure 128/61 169/60 (mmHg) O2 Sat by Pulse 98 90 Oximetry Oxygen Devices in Use Now: Nasal Cannula Result Diagrams: 10/14/17 12:46 10/15/17 05:11 Microbiology and Other Data: Microbiology 10/09/17 14:00 Nasal Screen MRSA (PCR)([facility]) - Final Nasal Mrsa Negative Assess/Plan/Problems-Billing Assessment: Mrs. Ayers is a 67 yo F with h/o HTN, PAF, DM2 who presented with persistent a. fib, complicated by cardiogenic shock. - Patient Problems (1) Sudden Comment: - Unfortunately patient was not on Tele when this happened, but she was pulseless, so suspect VT to VF transformation. - Cardiology input appreciated - increased Amiodarone dose. - Initially plan was to d/c home with Life Vest and f/u with Dr. Magallanes as outpatient to see if her EF recovered. He was planning to do stress test and/or cardiac cath as outpatient, but now with this episode, plans have changed. - She'll have a cardiac cath done 10/15/17. (2) Hypotension Comment: - On 10/10/17 at 5 PM pt developed hypotension with loose BM's and c/o nausea and abdominal cramping. Unclear if reaction to medication, did not respond to IVF boluses. - Cardioverted by Dr. Magallanes, placed on BIPAP and dopamine drip. - Suspected cardiogenic shock vs septic shock, but no signs of infection at this time. - Blood cultures growing strep viridans and staph lugdenensis - ID consult appreciated - suspect contamination and recommended d/c antibiotics. (3) Atrial fibrillation Comment: - S/p cardioversion on 10/10/17. - Remains in NSR - continue Amiodarone PO and hold Xarelto for cath tomorrow. - Repeat echo is unchanged. (4) Systolic CHF Comment: - Echo showed EF 20%, severe pulm HTN and mod to severe MR. - Continue low dose Furosemide and ACEI. (5) DM type 2 (diabetes mellitus, type 2) Comment: - Continue Lispro SS. (6) LFT elevation Comment: - Suspect secondary to passive liver congestion due to CHF - trending down. - Continue to monitor closely while on Amiodarone. - Liver ultrasound appreciated - some GB wall thickening, but no clinical signs of cholecystitis. - Acute hepatitis panel was negative. (7) V-tach Comment: - Episode of 24 beats of Vtach, asymptomatic 10/12/17, but sudden today. - Increase Amiodarone and plan for cath tomorrow. (8) DVT prophylaxis Comment: - Xarelto on hold in preparation for cath. - SCDs. (9) Full code status Status and Disposition: Inpatient. and daughter updated at bedside.
[2017-10-15] MEDS: Sodium Citrate/Citric Acid* 15 ML UDC PO SCH ×2 (09:00→14:58)
[2017-10-15] MEDS: Furosemide TAB* 20 MG PO SCH (09:00)
[2017-10-15] MEDS: Docusate CAP* 100 MG PO SCH (09:00)
[2017-10-15] MEDS: Insulin LISPRO* 1 UNITS UNIT SUBCUT SCH ×3 (09:09→16:55)
[2017-10-15] MEDS: Lisinopril TAB* 5 MG PO SCH (09:25)
[2017-10-15] MEDS: Amiodarone TAB* 200 MG PO SCH (09:25)
[2017-10-15] MEDS: Famotidine IV* 10 MG/ML 2 ML (20 mg) IV SLOW PU SCH (09:26)
[2017-10-15] MEDS: Carvedilol TAB* 3.125 MG PO SCH (09:26)
[2017-10-15] MEDS ORDERED: fentaNYL* 50 MCG/ML 2 ML VIAL (100 MCG VIAL) ONE ×2 (09:29→09:31)
[2017-10-15] MEDS ORDERED: Heparin(*) 1000 UNIT/ML 10 ML VIAL CATH LAB IV ONE (09:30)
[2017-10-15] MEDS ORDERED: nitroGLYCERIN DRIP* 25,000 MCG/250 ML BTL ONE (09:30)
[2017-10-15] MEDS ORDERED: VERAPAMIL 2.5 MG/ML 4 ML VIAL ONE (09:30)
[2017-10-15] MEDS ORDERED: Heparin 2 UNITS/ML IVPREMIX* 2,000 ML IV ONE (09:30)
[2017-10-15] MEDS ORDERED: Lidocaine 1% INJ* 10 MG/ML 30 ML SDV ONE (09:30)
[2017-10-15] MEDS ORDERED: Midazolam* 1 MG/ML 10 ML VIAL (10 MG) ONE (09:32)
[2017-10-15] MEDS ORDERED: Iodixanol* (CONTRAST) 320 MG/ML 100 ML SDV ONE (10:05)
[2017-10-15 10:42] LABS: PCO2 Arterial 36 mmHg (35-45)
[2017-10-15] MEDS ORDERED: Spironolactone TAB* 25 MG PO SCH (11:30)
[2017-10-15] MEDS ORDERED: KCL 10 MEQ/50 ML IVPREMIX* 10 MEQ/50 ML BAG IV ONE (12:46)
[2017-10-15] MEDS ORDERED: KCL 10 MEQ/50 ML IVPREMIX* 10 MEQ/50 ML BAG ONE (12:49)
[2017-10-15] MEDS ORDERED: Potassium Chloride LIQUID* 20 MEQ PACKET PO ONE (13:10)
[2017-10-15] MEDS ORDERED: Captopril TAB* 12.5 MG PO SCH (14:00)
--- NOTE | 2017-10-15 14:19 | CONS ---
CARDIOLOGY CONSULTATION DATE OF CONSULTATION: 10/15/2017. REASON FOR CONSULTATION: Nonsustained VT, cardiomyopathy. HISTORY OF PRESENT ILLNESS: See previous consult from Dr. Magallanes. History is from the patient, Dr. Stephens, the chart, and Dr. Jameson. This is a very pleasant, 67-year-old woman who has a history of diabetes and paroxysmal atrial fibrillation. She was admitted on the with progressive shortness of breath. She said that shortly after Thanksgiving she felt poorly. She had received a flu vaccine at some point and thought maybe her heart was a little faster, but she was not sure. She had more shortness of breath and saw urgent care and was started on an antibiotic for possible bronchitis. She also had some chest pressure at that time. She developed orthopnea and palpitations. She contacted Dr. Magallanes and received a dose of Lasix and felt better on the . On the . she went to [facility] for an echocardiogram. At that point it showed an EF to 20 percent, moderate to severe mitral regurgitation, severe pulmonary hypertension and was A-fib at a rate of 140. She also had a prolonged QT once her heart rate slowed down on IV Diltiazem. She did have a history of walking in the garage earlier that week, feeling dizzy and collapsing to the ground. She believes that she may have passed out for a moment. Her medications as an outpatient were aspirin 81, Victoza, CoQ10, Metoprolol 25 mg b.i.d. and Xarelto 20 mg a day for paroxysmal fibrillation. Of note, she also reports a history of an episode of "cardiac arrest" after a routine colonoscopy; that was 13 years ago at [facility]. She said that after the colonoscopy, she was told that she had had a cardiac arrest and she was evaluated in the hospital and discharged. She was told not to take her oral hypoglycemic at the time. She was evaluated by a nurse case manager and said she had a negative evaluation at that time. She underwent JEANINE-guided cardioversion because of uncertain compliance with her anticoagulation regimen. She was converted to sinus rhythm. She received Amiodarone 150 mg on October 10 and was started on an Amiodarone drip. She was started on Amiodarone 200 mg b.i.d. starting on October 12 until the . Yesterday, she was being prepared to go home. She was going to receive a LifeVest. While getting ready to get the LifeVest she took a shower and after her shower had a cardiac arrest and was resuscitated when transferred down to the unit. Her Amiodarone was increased to 400 mg a day. She continued to have nonsustained VT, some of which appeared to be polymorphic with a prolonged QT and it appears she received an extra 150 mg of Amiodarone at 6:00 a.m. on October 15. She had a cardiac catheterization today which revealed no significant obstructive coronary disease. During the cath and after, she continued to have non-sustained VT. While I was seeing her post cath, she developed symptomatic polymorphic VT requiring defibrillation. She is currently in sinus rhythm with a prolonged QT and appears to be asymptomatic. Because of the unclear etiology of her LV dysfunction, prolonged QT and multiple recurrences of symptomatic VT, I have discussed with her the possibility of transfer for electrophysiologic study and evaluation for possible defibrillator and for possible myocarditis. Her and her and daughter are at the bedside and agree with transfer. I have had the opportunity to discuss the case with Dr. Sheri Santos of [facility] who has kindly agreed to accept her in transfer. As we discussed, the possibilities include tachycardia-induced cardiomyopathy or perhaps a myocarditis, perhaps giant cell given the multiple arrhythmias and severe LV dysfunction. In addition, her history of unexplained cardiac arrest during a colonoscopy 13 years ago and sensitivity to medication raises the possibility of a prolonged QT syndrome or another channelopathy. I cannot exclude a medication effect as well. For the time being, I have recommended the followin. Will try to maintain her potassium over 4 and replace her potassium. 2. Will discontinue her Amiodarone. 3. We will continue magnesium supplementation as you are doing. 4. She is to continue on monitor with external defibrillator in place. 5. Will avoid extensive bradycardia and continue on a low dose of beta wicho. 6. Further recommendations will depend on her clinical course. Approximately 1 hour and 40 minutes were spent with the patient between 11:45 and 1:20 performing critical care (30min) and coordinating care (70 min). The case was discussed with Dr. Stephens as well as Dr. Santos. [id number]/[facility] #: [id number] [facility]
--- NOTE | 2017-10-15 16:02 | TRS ---
CC: Dr. Johnston; Dr. Magallanes; Dr. Lee; Dr. Haynes; Dr. Sheri Santos, supply chain generalist, [facility] DATE OF ADMISSION: 10/09/2017. DATE OF TRANSFER: 10/15/2017. DISCHARGE DIAGNOSES: 1. Atrial fibrillation with rapid ventricular rate, status post cardioversion. 2. Cardiogenic shock. 3. Acute systolic CHF exacerbation. 4. Transaminitis secondary to liver congestion. 5. Sudden . 6. Ventricular tachycardia with episode of torsades. 7. Nonobstructive coronary artery disease. SECONDARY DIAGNOSES: 1. A-fib. 2. Type 2 diabetes. 3. Hypertension. 4. Hyperlipidemia. MEDICATIONS AT THE TIME OF TRANSFER: 1. Acetaminophen 650 mg p.o. q.4 hours prn pain or fever. 2. Maalox Plus 30 ml p.o. q.6 hours prn indigestion. 3. Captopril 6.25 mg p.o. t.i.d. 4. Carvedilol 3.125 mg p.o. b.i.d. 5. Colace 100 mg p.o. b.i.d. 6. Furosemide 20 mg p.o. daily. 7. Lispro sliding scale. 8. Normal saline at 25 ml an hour. 9. Oxycodone/acetaminophen one tablet p.o. q.4 hours prn pain. 10. Bicitra 15 ml p.o. t.i.d. 11. Aldactone 25 mg p.o. daily. 12. Temazepam 15 mg p.o. at bedtime as needed for insomnia. HOSPITAL COURSE: Ms. Ayers is a 67-year-old lady with a past medical history as stated above who p resented to the emergency room on October 09 with complaints of shortness of breath. For more deta ils about her presentation, I refer you to her history and physical. The patient was initially start ed on a Cardizem drip for rate control and she was seen in consultation by Cardiology (Dr. Magallanes) and his impression was that the patient had developed tachycardia-induced cardiomyopathy as her echo twyla wed an ejection fraction of 20 percent, a drop from a normal EF in March. He recommended started Amioda makeda and if she did not convert, he was going to pursue JEANINE cardioversion. On October 10, the patient complained of diarrhea, nausea, and became very hypotensive. Initially the impression was that the patient had gastroenteritis, but as her condition continued to decline, t he impression was that the patient likely had a cardiogenic shock and emergent cardioversion was perf ormed that night. The patient felt well after the procedure. She responded to diuresis and an echoca rdiogram was repeated on October 12. Her ejection fraction was still low, less than 20 percent. The patient had one episode of 20 beats of V-tach, asymptomatic, and the initial plan was for the pat ient to have a LifeVest and to be discharged home to follow-up with Dr. Magallanes as an outpatient, but u nfortunately on October 14, the patient had an episode of pulseless arrest. Unfortunately, at sejla t time the patient did not have a telemonitor on, so we do not know exactly what arrhythmia caused it . At that point, the plan was to increase her Amiodarone dose and to plan for a cardiac cath today. Overnight, the patient had more episodes of V-tach that did not require any shock. Her cardiac cath did not show any significant obstructive coronary artery disease, but after the cath the patient had an episode of torsades requiring shocks. Dr. Haynes discussed the case with audit specialist at [facility] and the plan at this point is for the patient to be transferred to [facility] for further evalu ation. PHYSICAL EXAMINATION: General: The patient is a pleasant lady, lying in bed in no acute distress. V ital Signs: Temperature 98.0, heart rate 87, respiratory rate 20, oxygen saturation 98 percent on 2 liters nasal cannula, blood pressure 169/60. CVS: Normal S1, S2. Regular rate and rhythm. Chest: Breath sounds present bilaterally with no added sounds. Abdomen: Soft, bowel sounds are present. Extremities: There is mild lower extremity edema. Neuro: She is alert, awake and oriented times th ree, able to move all four extremities. DIET: Heart healthy consistent carb diet. ACTIVITY: As tolerated. DISPOSITION: To [facility]. STATUS WHILE IN THE HOSPITAL: Inpatient. Please keep in mind this is a summarized version of this patient's hospital stay. If you need more in formation, please feel free to call me at or please obtain the full medical record. Appropriately 50 minutes were spent to complete this discharge. [id number]/[facility] #: [id number]
[2017-10-15 17:18] VITALS: BP 148/82
--- NOTE | 2017-10-15 17:34 | CATH ---
CC: Dr. Johnston; Dr. Magallanes * CATH REPORT: DATE OF PROCEDURE: 10/15/17 PRIMARY CARE PHYSICIAN: Dr. Johnston. ORTHOPTIST: Dr. Magallanes. PROCEDURES: 1. Right radial artery access. 2. Bilateral selective coronary cineangiography. 3. Left heart catheterization. HISTORY: A 67-year-old woman with paroxysmal atrial fibrillation, previously measured normal LV function, admitted with decompensated acute left-sided heart failure, and recurring non-sustained VT. Catheterization is being performed to evaluate the etiology of heart failure, to help differentiate between coronary disease in a patient with numerous coronary risk factors including diabetes and tachycardia-induced cardiomyopathy. PROCEDURE: Access right radial artery with ultrasound guidance. The right radial artery was approximately 1.9 x 1.9 mm. Diagnostic catheter, 5F TIG4, which was used for bilateral obstructive coronary cineangiography and left heart catheterization. MEDICATIONS: 1. Subcu lidocaine. 2. IV Versed. 3. Heparin 3000 units. 4. Verapamil 3 mg. 5. Nitroglycerin 300 mcg IA. HEMODYNAMICS: Initial BP 161/87, LV 140/16, no aortic valve gradient on pullback. During the procedure, she had 2 episodes of brief nonsustained VT, which did not require intervention. Arterial blood gas at the beginning of the procedure revealed pH of 7.43, pCO2 of 36, pO2 of 70, base deficit -0.01. ANGIOGRAPHY: Left main: The left main is normal in size, relatively short, has no stenosis. LAD: The LAD is heavily calcified, extends past the apex, she has scattered branch disease with a small first diagonal, small second diagonal less than 2 mm which has ostial 60% to 70% stenosis. The proximal LAD has minor irregularity, the mid LAD bridging the second diagonal has 50% to 60% stenosis. There is nonobstructive plaque at the apex. Circumflex: The circumflex is not dominant, is moderate, with a single large marginal branch. The more superior branch has a small side branch which has an ostial 80% stenosis, reference diameter is about a millimeter. It arises from a very short segment stenosis in the marginal, which is less than 30% to 40%. The marginal branch supplies the obtuse margin. There is a more proximal inferior side branch of the marginal which is occluded at its origin, fills by left to left as well as right to left collaterals, is a millimeter or less in diameter, its entry point is not clearly defined. RCA: The RCA is moderate, with extensive distribution, dominant, with a mid tubular 50% stenosis, the PDA is small with irregularity, RCA continuation after the PDA has a 50% stenosis which is short, followed by 4 small posterolateral branches. The distal RPL provides right to left collaterals through the branch of the circumflex marginal. CONCLUSION: 1. Diffuse primarily nonobstructive atherosclerosis with occlusion of a small side branch by marginal, moderate stenosis in the mid RCA and mid LAD, insufficient to cause her a severe LV systolic dysfunction. The etiology for her severe LV systolic dysfunction is likely nonischemic. 2. Elevated LVDP, otherwise normal left-sided hemodynamics. 3. Successful right radial artery access. [id number]/[facility] #: [id number] TAMIR
--- NOTE | 2017-10-16 08:59 | ECHO ---
Patient: VICKIE PETER [facility] Rec#: [id number] : 1950 Date: 10/15/2017 Age: 67y Height: 150 cm / 59.1 in Weight: 56 kg / 123.4 lbs Sex: F BSA: 1.5 Room#: ICU 1 Admit Date#: 10/09/2017 Type: Inpatient Referring: Ti Haynes MD Reading: Ti Haynes MD Wardrobe Custodian: [facility] Transthoracic Echocardiogram Indication: Cardiogenic Shock BP: 169/60 HR: 77 Rhythm: NSR Findings History: Cardiogenic shock, cardiomyopathy, AFIB, HTN, HLD, DM Technical Comments: The study quality is good. Left Ventricle: There is global hypokinesis of the left ventricle with minor regional variation.The inferior and inferoseptum appears to have the most pronounced hypokinesis. The anterior and anteroseptal segments appear to be relatively better than the other segments. There is severely decreased left ventricular systolic function. The estimated ejection fraction is 20-25%. closer to 25%. The basal anteroseptal, basal anterior, basal anterolateral, basal inferolateral, basal inferior, basal inferoseptal, mid anteroseptal, mid anterior, mid anterolateral, mid inferolateral, apical anterior, and apical lateral wall segments are hypokinetic (score 2). The mid inferior, mid inferoseptal, apical septal, and apical inferior wall segments are akinetic (score 3). Overall wallmotion score index is 2.25 Left Atrium: The left atrium is severely dilated. Right Ventricle: The right ventricular global systolic function is mildly reduced. Right Atrium: The right atrial cavity size is normal. Pericardium: There is no significant pericardial effusion. A left pleural effusion is present. Conclusions There is global hypokinesis of the left ventricle with minor regional variation. The inferior and inferoseptum appears to have the most pronounced hypokinesis. The anterior and anteroseptal segments appear to be relatively better than the other segments. There is severely decreased left ventricular systolic function. The estimated ejection fraction is 20-25%, closer to 25%. The left atrium is severely dilated. The right ventricular global systolic function is mildly reduced. Slight improvement in EF c/t 12.11.17 when it was less than 20%.. Wallmotion BAS Hypokinetic BA Hypokinetic BAL Hypokinetic VICENTE Hypokinetic BI Hypokinetic BIS Hypokinetic MAS Hypokinetic MA Hypokinetic MAL Hypokinetic MIL Hypokinetic WA Akinetic MIS Akinetic Akinetic AA Hypokinetic AL Hypokinetic AI Akinetic APEX Akinetic
== END 2017-10-15 17:50 | disposition short-term general hospital (02) | DRG 286 ==
LOC: ICU 13:06 → MEDTELE 10-12 10:51 → ICU 10-15 05:59
PROVIDERS: ADMIT Internal Medicine; ATTEND Internal Medicine
PROC: 5A2204Z Restoration of Cardiac Rhythm, Single (ICD-10-PCS; principal; 2017-10-10)
PROC: 5A12012 Performance of Cardiac Output, Single, Manual (ICD-10-PCS; 2017-10-10)
PROC: 06HM33Z Insertion of Infusion Device into Right Femoral Vein, Percutaneous Approach (ICD-10-PCS; 2017-10-10)
PROC: 3E033XZ Introduction of Vasopressor into Peripheral Vein, Percutaneous Approach (ICD-10-PCS; 2017-10-10)
PROC: 5A09457 Assistance with Respiratory Ventilation, 24-96 Consecutive Hours, Continuous Positive Airway Pressure (ICD-10-PCS; 2017-10-10)
PROC: B211YZZ Fluoroscopy of Multiple Coronary Arteries using Other Contrast (ICD-10-PCS; 2017-10-15)
PROC: 4A023N7 Measurement of Cardiac Sampling and Pressure, Left Heart, Percutaneous Approach (ICD-10-PCS; 2017-10-15)
DX: I48.1 Persistent atrial fibrillation (principal); R57.0 Cardiogenic shock; J96.01 Acute respiratory failure with hypoxia; I47.2 Ventricular tachycardia; I50.21 Acute systolic (congestive) heart failure; I95.9 Hypotension, unspecified; I27.20 Pulmonary hypertension, unspecified; I11.0 Hypertensive heart disease with heart failure; I50.23 Acute on chronic systolic (congestive) heart failure; N17.9 Acute kidney failure, unspecified; I42.8 Other cardiomyopathies; I49.01 Ventricular fibrillation; I48.0 Paroxysmal atrial fibrillation; J39.8 Other specified diseases of upper respiratory tract; E11.9 Type 2 diabetes mellitus without complications; E78.5 Hyperlipidemia, unspecified; Z88.8 Allergy status to other drugs, medicaments and biological substances; Z80.3 Family history of malignant neoplasm of breast; I34.0 Nonrheumatic mitral (valve) insufficiency; R79.89 Other specified abnormal findings of blood chemistry; F41.9 Anxiety disorder, unspecified; R23.0 Cyanosis; R68.89 Other general symptoms and signs; I25.10 Atherosclerotic heart disease of native coronary artery without angina pectoris; K52.9 Noninfective gastroenteritis and colitis, unspecified
CPT/HCPCS: 36415; 36600; 71010; 71275; 76705; 80048; 80053; 80061; 80074; 80076; 80202; 81003; 81015; 82803; 83605; 83735; 83880; 84443; 84484; 85025; 87040; 87077; 87086; 87186; 87205; 87641; 93005; 93306; 93308; 93458; 94660; 94760; 99156; 99157; A9270-GY; J0282; J0696; J0780; J1265; J1644; J1940; J2250; J2543; J3010; J3370; J3475; J3480; J3490; Q9967